=== PATIENT | female | born 1930 | race Caucasian/White ===

== ENCOUNTER 2017-12-17 14:01 | Inpatient (IN) ==
--- NOTE | 2017-12-17 14:41 | ED ---
HPI General Chief complaint: Head Injury Stated complaint: Fall/Head Laceration/Knee Pain Time Seen by Provider: 12/17/17 14:17 Source: patient Mode of arrival: ambulatory Limitations: no limitations History of Present Illness HPI Narrative: 87-year-old female arrives with daughter. The patient experienced a mechanical fall about an hour and half prior to ER arrival. Her foot was evidently stepping care home onto a scale causing her to feel unbalanced and leading to the fall. Patient struck the left forehead onto the tile. No loss of consciousness. Mild discomfort in the area reported. Bleeding resolved spontaneously. Patient takes a baby aspirin. No other injury to report. The patient's daughter notes the vital signs are abnormal with a blood pressure of about 80/50 and a heart rate in the 50s. Typically the patient has elevated blood pressure heart rate. MD Complaint: head injury Onset (ago): hour(s) (1.5) Mechanism of Injury: fall Place: home Loss of Consciousness: no Location of injury: frontal Severity: mild Radiation: none Other Injuries: none Context: on aspirin Associated symptoms: denies other symptoms Related Data Home Medications Medication Instructions Recorded Confirmed aspirin [Aspir-81] 81 mg PO DAILY 12/17/17 12/17/17 levothyroxine 25 mcg PO DAILY 12/17/17 12/17/17 losartan 25 mg PO DAILY 12/17/17 12/17/17 metoprolol tartrate 50 mg PO BID 12/17/17 12/17/17 simvastatin 40 mg PO QPM 12/17/17 12/17/17 Allergies Allergy/AdvReac Type Severity Reaction Status Date / Time No Known Allergies Allergy Verified 12/17/17 14:13 Review of Systems Except as stated in HPI: all other systems reviewed are negative Constitutional Reports as per HPI and Denies fever(s) Eyes Denies change in vision and Denies loss of vision [facility] Medical History Medical History High cholesterol (Acute) Hypertension (Acute) Hypothyroidism (Acute) Surgical History Surgical History Hx of tonsillectomy (Acute) Social History Social History Second Hand Smoke Exposure: No Smoking Status: Never smoker How Often Do You Have a Drink Containing Alcohol: Never Recent Travel in [facility] within the Last 8 Weeks: No Recent Out of Country Travel within the Last 8 Weeks: No Immunization History Tetanus Immunization: >5 Years Hx Influenza Vaccine This Season: No Exam Narrative Exam Narrative: GENERAL: 87 yo F, pleasant well-nourished well-developed SKIN: Focused skin assessment warm/dry. HEAD: The left forehead overlying the lateral aspect of the supraorbital ridge there is a 4 mm x 2 mm abrasion with dried blood. Adjacent ecchymosis is noted on the left side. EYES: Pupils equal and round. No scleral icterus. No injection or drainage. ENT: No nasal bleeding or discharge. Mucous membranes pink and moist. NECK: Trachea midline. No JVD. CARDIOVASCULAR: Regular rate and rhythm. No murmur appreciated. RESPIRATORY: No accessory muscle use. Clear to auscultation. Breath sounds equal bilaterally. GASTROINTESTINAL: Abdomen soft, non-tender, nondistended. Hepatic and splenic margins not palpable. MUSCULOSKELETAL: No obvious deformities. No clubbing. No cyanosis. No edema. NEUROLOGICAL: Awake and alert. No obvious cranial nerve deficits. Motor grossly within normal limits. Normal speech. PSYCHIATRIC: Appropriate mood and affect; insight and judgment normal. Course Reevaluation(s) Reevaluation #1: Pt resting comfortably. Results discussed and concern for renal failure endorsed. Call placed to [facility]. BP up to 90s/50s with HR in the 60s. Time: 15:25 Initial Documented Vital Signs Temperature 97.4 F L 12/17/17 14:06 Pulse Rate 54 L 12/17/17 14:06 Respiratory Rate 16 12/17/17 14:06 Blood Pressure 89/49 L 12/17/17 14:06 Pulse Oximetry 100 12/17/17 14:06 Last Documented Vital Signs Temperature 97.4 F L 12/17/17 14:06 Pulse Rate 57 L 12/17/17 17:12 Respiratory Rate 18 12/17/17 17:12 Blood Pressure 90/47 L 12/17/17 17:12 Pulse Oximetry 97 12/17/17 17:12 Medical Decision Making [facility] Narrative Medical decision making narrative: Head CT shows no acute intracranial hemorrhage or bony injury involving the skull. There is a very mild abrasion overlying the left supraorbital ridge. The patient is stable for discharge home. The blood pressure and heart rate were noted to be abnormal with some heart rate of about 50-60 and a blood pressure of 80/50. Evidently patient did not take her morning medications. Blood work today reveals a BUN creatinine 40/2.7. The potassium is 4.7. EKG shows no hyperkalemic change. The patient's daughter has records available revealing creatinine of 0.9 and a BUN of 22 resulting from a blood draw 4 months ago. Blood pressure has increased to 90/50 with a heart rate in the 60s. Paper medical records from the primary care office show 1 blood pressure measurement of 98/68. The patient will be admitted due to significant decline in renal function of unknown acuity and cause. Urinalysis is pending. case d/w Dr Zarate for [facility], management appreciated. Lab Data Result diagrams: 12/17/17 14:00 12/17/17 14:00 Lab Results 12/17/17 12/17/17 12/17/17 Range/Units 14:00 14:00 14:27 CBC w Diff Auto diff final WBC 7.3 (4.0-11.0) th/mm3 RBC 4.26 (4.00-5.30) mil/mm3 Hgb 13.3 (11.6-15.3) gm/dL Hct 40.4 (35.0-46.0) % MCV 95.0 (80.0-100.0) fL MCH 31.3 (27.0-34.0) pg MCHC 32.9 (32.0-36.0) % RDW 14.8 (11.6-17.2) % Plt Count 141 L (150-450) th/mm3 MPV 8.1 (7.0-11.0) fL Neut % (Auto) 56.1 (16.0-70.0) % Lymph % (Auto) 27.5 (9.0-44.0) % Wirt % (Auto) 9.5 H (0.0-8.0) % Eos % (Auto) 3.0 (0.0-4.0) % Baso % (Auto) 3.9 H (0.0-2.0) % Neut # (Auto) 4.1 (1.8-7.7) th/mm3 Lymph # (Auto) 2.0 (1.0-4.8) th/mm3 Wirt # (Auto) 0.7 (0.0-0.9) th/mm3 Eos # (Auto) 0.2 (0.0-0.4) th/mm3 Baso # (Auto) 0.3 H (0.0-0.2) th/mm3 WBC Differential . Differential Comment . Sodium 137 (136-145) meq/L Potassium 4.7 (3.5-5.1) meq/L Chloride 104 (98-107) meq/L Carbon Dioxide 24.4 (21.0-32.0) meq/L Anion Gap 9 (5-15) meq/L BUN 40 H (7-18) mg/dL Creatinine 2.70 H (0.50-1.00) mg/dL Estimated GFR 17 L (>89) mL/min POC Glucose 117 H (68-110) mg/dl Random Glucose 125 H (74-106) mg/dL Calcium 10.6 H (8.5-10.1) mg/dL Total Bilirubin 1.0 (0.2-1.0) mg/dL AST 111 H (15-37) U/L ALT 62 H (10-53) U/L Alkaline Phosphatase 64 (45-117) U/L Troponin I 0.07 H (0.02-0.05) ng/mL Total Protein 5.8 L (6.4-8.2) g/dL Albumin 3.0 L (3.4-5.0) g/dL Ur Collection Type Urine Color (Yellw/Straw) Urine Clarity (Clear) Urine pH (5.0-8.5) Ur Specific [place] (1.002-1.035) Urine Protein (Neg-Trace) mg/dL Urine Glucose (UA) (Negative) mg/dL Urine Ketones (Negative) mg/dL Urine Occult Blood (Negative) Urine Nitrate (Negative) Urine Bilirubin (Negative) Urine Urobilinogen (Less than 2) mg/dL Ur Leukocyte Esterase (Negative) Urine WBC (0-5) /hpf Urine WBC Clumps (None) Ur Squamous Epith Cells (0-5) /hpf Ur Transition Epith Cell (None) /hpf Urine Bacteria (None) /hpf Hyaline Casts (0-3) /lpf Micro UA Comment Urine Culture Comments 12/17/17 Range/Units 15:50 CBC w Diff WBC (4.0-11.0) th/mm3 RBC (4.00-5.30) mil/mm3 Hgb (11.6-15.3) gm/dL Hct (35.0-46.0) % MCV (80.0-100.0) fL MCH (27.0-34.0) pg MCHC (32.0-36.0) % RDW (11.6-17.2) % Plt Count (150-450) th/mm3 MPV (7.0-11.0) fL Neut % (Auto) (16.0-70.0) % Lymph % (Auto) (9.0-44.0) % Wirt % (Auto) (0.0-8.0) % Eos % (Auto) (0.0-4.0) % Baso % (Auto) (0.0-2.0) % Neut # (Auto) (1.8-7.7) th/mm3 Lymph # (Auto) (1.0-4.8) th/mm3 Wirt # (Auto) (0.0-0.9) th/mm3 Eos # (Auto) (0.0-0.4) th/mm3 Baso # (Auto) (0.0-0.2) th/mm3 WBC Differential Differential Comment Sodium (136-145) meq/L Potassium (3.5-5.1) meq/L Chloride (98-107) meq/L Carbon Dioxide (21.0-32.0) meq/L Anion Gap (5-15) meq/L BUN (7-18) mg/dL Creatinine (0.50-1.00) mg/dL Estimated GFR (>89) mL/min POC Glucose (68-110) mg/dl Random Glucose (74-106) mg/dL Calcium (8.5-10.1) mg/dL Total Bilirubin (0.2-1.0) mg/dL AST (15-37) U/L ALT (10-53) U/L Alkaline Phosphatase (45-117) U/L Troponin I (0.02-0.05) ng/mL Total Protein (6.4-8.2) g/dL Albumin (3.4-5.0) g/dL Ur Collection Type Cath Urine Color Yellow (Yellw/Straw) Urine Clarity Slightly cloudy (Clear) Urine pH 6.0 (5.0-8.5) Ur Specific [place] 1.020 (1.002-1.035) Urine Protein 30 H (Neg-Trace) mg/dL Urine Glucose (UA) Negative (Negative) mg/dL Urine Ketones Trace H (Negative) mg/dL Urine Occult Blood Negative (Negative) Urine Nitrate Negative (Negative) Urine Bilirubin Negative (Negative) Urine Urobilinogen 0.2 (Less than 2) mg/dL Ur Leukocyte Esterase Small H (Negative) Urine WBC 6-8 H (0-5) /hpf Urine WBC Clumps Few H (None) Ur Squamous Epith Cells 0-5 (0-5) /hpf Ur Transition Epith Cell 0-3 (None) /hpf Urine Bacteria Rare H (None) /hpf Hyaline Casts 4-10 H (0-3) /lpf Micro UA Comment Culture indicated Urine Culture Comments Culture indicated Imaging Data Radiologist's impression: Head CT 12/17/17 14:28 CONCLUSION: 1. No acute intracranial abnormalities. . Discharge Plan Discharge Disposition Patient Disposition: 30 Still Patient Physicians Team ED Provider: Spenser Rodriguez Primary Care Provider: Jose Mccoy Attending Provider: Nils Zarate Discharge Interventions Interventions: Vital Signs Last Done: 12/17/17 16:08 Status ED Status: Admitted Patient
[2017-12-17] MEDS ORDERED: Sod Chloride 0.9% Inj 1,000 ML IV.SIG ONE ×2 (14:42→23:00)
[2017-12-17 15:01] LABS: Baso # (Auto) 0.3 th/mm3 (0.0-0.2); Baso % (Auto) 3.9 % (0.0-2.0); Eos # (Auto) 0.2 th/mm3 (0.0-0.4); Hematocrit 40.4 % (35.0-46.0); Hemoglobin 13.3 gm/dL (11.6-15.3); Lymph % (Auto) 27.5 % (9.0-44.0); Mean Corpuscular HGB Conc 32.9 % (32.0-36.0); Mean Corpuscular Hemoglobin 31.3 pg (27.0-34.0); Mean Platelet Volume 8.1 fL (7.0-11.0); Mono # (Auto) 0.7 th/mm3 (0.0-0.9); Mono % (Auto) 9.5 % (0.0-8.0); Neut # (Auto) 4.1 th/mm3 (1.8-7.7); Neut % (Auto) 56.1 % (16.0-70.0); Platelet Count 141 th/mm3 (150-450); Red Blood Count 4.26 mil/mm3 (4.00-5.30); Red Cell Distribution Width 14.8 % (11.6-17.2); White Blood Count 7.3 th/mm3 (4.0-11.0)
[2017-12-17 15:13] LABS: Chloride 104 meq/L (98-107); Sodium 137 meq/L (136-145)
[2017-12-17 15:16] LABS: Anion Gap 9 meq/L (5-15); Calcium 10.6 mg/dL (8.5-10.1); Carbon Dioxide 24.4 meq/L (21.0-32.0); Glucose,Random 125 mg/dL (74-106)
[2017-12-17 15:17] LABS: Blood Urea Nitrogen 40 mg/dL (7-18)
[2017-12-17 15:18] LABS: Potassium 4.7 meq/L (3.5-5.1)
[2017-12-17 15:20] LABS: Alanine Aminotransferase 62 U/L (10-53); Aspartate Aminotransferase 111 U/L (15-37); Glomerular Filtration Rate 17 mL/min (>89)
[2017-12-17 15:21] LABS: Total Protein 5.8 g/dL (6.4-8.2)
[2017-12-17 15:22] LABS: Alkaline Phosphatase 64 U/L (45-117)
[2017-12-17 15:24] LABS: Troponin I 0.07 ng/mL (0.02-0.05)
--- NOTE | 2017-12-17 15:33 | CT ---
EXAM DATE: 12/17/2017 3:15 PM EDT AGE/SEX: 87 years / Female INDICATIONS: Fell and hit head. CLINICAL DATA: This is the patient's initial encounter. Patient reports that signs and symptoms have been present for 1 day and indicates a pain score of 6/10. MEDICAL/SURGICAL HISTORY: Hypertension. Hypothyroidism. Tonsillectomy. RADIATION DOSE: 55.56 CTDI (mGy) COMPARISON: No prior exams available for comparison. TECHNIQUE: CT of the head without contrast. Using automated exposure control and adjustment of the mA and/or kV according to patient size, radiation dose was kept as low as reasonably achievable to ob tain optimal diagnostic quality images. DICOM format image data is available electronically for revi ew and comparison. FINDINGS: Cerebrum: The ventricles are normal for age. No evidence of midline shift, mass lesion, hemorrhage or acute infarction. No extraaxial fluid collections are seen. Posterior Fossa: The cerebellum and brainstem are intact. The 4th ventricle is midline. The cerebe llopontine angle is unremarkable. Extracranial: The visualized portion of the orbits is intact. Skull: The calvaria is intact. No evidence of skull fracture. CONCLUSION: 1. No acute intracranial abnormalities. . Electronically signed by: Donnell San MD 12/17/2017 3:32 PM EDT
[2017-12-17 16:01] LABS: Bilirubin,Urine Negative (Negative); Clarity,Urine Slightly Cloudy (Clear); Color,Urine Yellow (Yellw/Straw); Glucose,Urine (UA) Negative (Negative); Leukocyte Esterase,Urine Small (Negative); Nitrite,Urine Negative (Negative); Urobilinogen,Urine 0.2 mg/dL (Less than 2)
[2017-12-17 16:27] LABS: Squamous Epithelial Cell,Urine 0-5 /hpf (0-5); Transitional Epi Cells,Urine 0-3 /hpf
[2017-12-17 16:28] LABS: Bacteria,Urine Rare /hpf
[2017-12-17] MEDS ORDERED: Bisacodyl 10 MG Supp RECTAL PRN (17:20)
--- NOTE | 2017-12-17 17:20 | P.HPIM ---
History of Present Illness Service: [facility] Hospitalist Primary Care Physician: Jose Mccoy MD Chief Complaint: Fall History of Present Illness: 87 Y/O female with a medical history significant for hypotension presented to the emergency room with her daughter after a mechanical fall at home. Patient reports that she normally goes to bed around 2 in the morning and sleep in most days. She woke up today to get ready and tripped on the scale on the bathroom. The left side of her face striking the door frame. She denied any lightheadedness, no chest pain. She is short of breath at baseline with activities. She does not normally eat breakfast. Her blood pressure in the emergency room was noted to the in the 80's/50's and heart rate in the 50's. On my evaluation she states she is feeling well. She has been given a liter of NS and BP improved but still low in the 90's/50's. Daughter reports that her blood pressure is usually in the normal range or elevated. Hospitalist service contacted for admission. - Diagnosis (1) Fall (2) Hypotension (3) Acute on chronic renal failure (4) History of hypertension Inpatient Certification: I certify that the inpatient services were ordered in accordance with Medicare regulations governing the order. This includes certification that hospital inpatient services are reasonable and necessary and in the case of services not specified as inpatient-only under 42 CFR 419.22(n), that they are appropriately provided as inpatient services in accordance to with the 2-midnight benchmark under 43 CFR 412.3(e) Review of Systems All other systems reviewed negative except as stated in HPI [facility] - History History Provided By: Patient, Family Member - Medical History Medical History: Medical History (Last Updated 12/17/17 @ 14:18 by Laura Karimi RN) High cholesterol Hypertension Hypothyroidism - Surgical History Surgical History: Surgical History (Last Updated 12/17/17 @ 14:18 by Laura Karimi RN) Hx of tonsillectomy - Tobacco History Second Hand Smoke Exposure: No Tobacco Use In Past 30 Days: No Smoking Status: Never smoker - Alcohol History How Often Do You Have a Drink Containing Alcohol: Never - Travel History Recent Travel in the [place] Within the Last 8 Weeks: No Recent Travel Out of the Country Within the Last 8 Weeks: No - Immunization History Tetanus Immunization: >5 Years Hx Influenza Vaccine This Season: No Medications and Allergies Active Medications: Active Medications Sodium Chloride (Ns Flush) 2 ml IV.FLUSH PRN PRN PRN Reason: FLUSH AFTER USING IV ACCESS Allergies Allergy/AdvReac Type Severity Reaction Status Date / Time No Known Allergies Allergy Verified 12/17/17 14:13 Home Medications Medication Instructions Recorded Confirmed Type aspirin [Aspir-81] 81 mg PO DAILY 12/17/17 12/17/17 History levothyroxine 25 mcg PO DAILY 12/17/17 12/17/17 History losartan 25 mg PO DAILY 12/17/17 12/17/17 History metoprolol tartrate 50 mg PO BID 12/17/17 12/17/17 History simvastatin 40 mg PO QPM 12/17/17 12/17/17 History Exam Vital signs: Vital Signs 12/17/17 14:06 12/17/17 14:17 12/17/17 14:21 Temperature 97.4 F L Pulse Rate 54 L 55 L 58 L Respiratory Rate 16 18 Blood Pressure 89/49 L 82/50 L Pulse Oximetry 100 98 12/17/17 14:37 12/17/17 14:42 12/17/17 15:38 Temperature Pulse Rate 57 L 56 L Respiratory Rate 16 16 Blood Pressure 83/42 L 90/52 L Pulse Oximetry 97 98 96 12/17/17 16:08 12/17/17 17:12 Temperature Pulse Rate 57 L Respiratory Rate 18 Blood Pressure 107/51 L 90/47 L Pulse Oximetry 97 Intake & Output 12/16/17 12/17/17 12/17/17 18:59 06:59 18:59 Intake Total 1000 / 1000 Balance 1000 / 1000 Weight 64 kg Intake: IV 1000 / 1000 NS Inj 1,000 ML @ Wide Open IV. 1000 / 1000 SIG BOLUS ONE Rx#:[id number] Narrative: GENERAL: Elderly female in no acute distress. Ecchymoses over the left eye. Small abrasion on the left eyelid. SKIN: Warm and dry. HEAD: Atraumatic. Normocephalic. EYES: As noted above under general. Pupils equal and round. No scleral icterus. No injection or drainage. EOM intact. ENT: No nasal bleeding or discharge. Mucous membranes pink and moist. NECK: Trachea midline. No JVD. CARDIOVASCULAR: Regular rate and rhythm. 2/6 MI best heard over the left sternal border RESPIRATORY: No accessory muscle use. Clear to auscultation. Breath sounds equal bilaterally. GASTROINTESTINAL: Abdomen soft, non-tender, nondistended. Hepatic and splenic margins not palpable. MUSCULOSKELETAL: Extremities without clubbing, cyanosis, or edema. No obvious deformities. NEUROLOGICAL: Awake and alert. No obvious cranial nerve deficits. Motor grossly within normal limits. Five out of 5 muscle strength in the arms and legs. Normal speech. PSYCHIATRIC: Appropriate mood and affect; insight and judgment normal. Results - Labs CBC & Chem 7: 12/17/17 14:00 12/17/17 14:00 Labs: Short CBC 12/17/17 Range/Units 14:00 WBC 7.3 (4.0-11.0) th/mm3 Hgb 13.3 (11.6-15.3) gm/dL Hct 40.4 (35.0-46.0) % Plt Count 141 L (150-450) th/mm3 BMP 12/17/17 14:00 Sodium 137 Potassium 4.7 Chloride 104 Carbon Dioxide 24.4 BUN 40 H Creatinine 2.70 H Calcium 10.6 H Cardiac Enzymes 12/17/17 Range/Units 14:00 Troponin I 0.07 H (0.02-0.05) ng/mL Liver Function 12/17/17 Range/Units 14:00 Total Bilirubin 1.0 (0.2-1.0) mg/dL AST 111 H (15-37) U/L ALT 62 H (10-53) U/L Alkaline Phosphatase 64 (45-117) U/L Albumin 3.0 L (3.4-5.0) g/dL Urine 12/17/17 Range/Units 15:50 Urine Color Yellow (Yellw/Straw) Urine Clarity Slightly cloudy (Clear) Urine pH 6.0 (5.0-8.5) Ur Specific [place] 1.020 (1.002-1.035) Urine Protein 30 H (Neg-Trace) mg/dL Urine Glucose (UA) Negative (Negative) mg/dL - Imaging Impressions Head CT 12/17/17 14:28 CONCLUSION: 1. No acute intracranial abnormalities. . Caprini VTE Risk Assessment Caprini VTE Risk Assessment: Moderate/High Risk (score >= 2) VTE Pharmacological Exception Reason: High risk for bleeding Caprini Risk Assessment Model: Point Value = 1 Point Value = 2 Point Value = 3 Point Value = 5 Age 41-60 Minor surgery BMI > 25 kg/m2 Swollen legs Varicose veins or History of unexplained or recurrent spontaneous Oral contraceptives or hormone replacement Sepsis (< 1 month) Serious lung disease, including pneumonia (< 1 month) Abnormal pulmonary function Acute myocardial infarction Congestive heart failure (< 1 month) History of inflammatory bowel disease Medical patient at bed rest Age 61-74 Arthroscopic surgery Major open surgery (> 45 min) Laparoscopic surgery (> 45 min) Malignancy Confined to bed (> 72 hours) Immobilizing plaster cast Central venous access Age >= 75 History of VTE Family history of VTE Factor V Leiden Prothrombin [id number] Lupus anticoagulant Anticardiolipin antibodies Elevated serum homocysteine Heparin-induced thrombocytopenia Other congenital or acquired thrombophilia Stroke (< 1 month) Elective arthroplasty Hip, pelvis, or leg fracture Acute spinal cord injury (< 1 month) Prophylaxis Regimen: Total Risk Factor Score Risk Level Prophylaxis Regimen 0-1 Low Early ambulation 2 Moderate Order ONE of the following: *Sequential Compression Device (SCD) *Heparin 5000 units SQ BID 3-4 Higher Order ONE of the following medications: *Heparin 5000 units SQ TID *Enoxaparin/Lovenox 40 mg SQ daily (WT < 150 kg, CrCl > 30 mL/min) *Enoxaparin/Lovenox 30 mg SQ daily (WT < 150 kg, CrCl > 10-29 mL/min) *Enoxaparin/Lovenox 30 mg SQ BID (WT < 150 kg, CrCl > 30 mL/min) AND/OR *Sequential Compression Device (SCD) 5 or more Highest Order ONE of the following medications: *Heparin 5000 units SQ TID (Preferred with Epidurals) *Enoxaparin/Lovenox 40 mg SQ daily (WT < 150 kg, CrCl > 30 mL/min) *Enoxaparin/Lovenox 30 mg SQ daily (WT < 150 kg, CrCl > 10-29 mL/min) *Enoxaparin/Lovenox 30 mg SQ BID (WT < 150 kg, CrCl > 30 mL/min) AND *Sequential Compression Device (SCD) Assessment and Plan - Assessment (1) Fall Code(s): W19.XXXA - Unspecified fall, initial encounter Status: Acute (2) Hypotension Code(s): I95.9 - Hypotension, unspecified Status: Acute (3) Acute on chronic renal failure Code(s): N17.9 - Acute kidney failure, unspecified; N18.9 - Chronic kidney disease, unspecified Status: Acute (4) History of hypertension Code(s): Z86.79 - Personal history of other diseases of the circulatory system Status: Acute - Plan 87 Y/O female who sustained a trip and fall. Patient found to be hypotensive and bradycardic in the ED. She denies any cardiovascular symptoms. Her sleeping and food intake pattern is unusual. I suspect medication side effect. Mechanical fall: Patient reports she tripped on a scale and fell. Only apparent injury is ecchymoses and small laceration to the right eyelid - Will have PT evaluated. - Pain medication as needed. Hypotension: Suspect too much medication and lack of inadequate PO intake contributing - Hold Metoprolol and Losartan - IVF with NS @100 CC/Hr Acute on chronic renal failure: - Daughter reports that the last cr was less than 1. Suspect prerenal azotemia - Continue IVF as above Sinus bradycardia: - Asymptomatic. Could be secondary to metoprolol. Hold metoprolol. Monitor on telemetry. Check thyroid functions Hypothyroidism: Continue Synthroid. Check TSH and free T4 Mild elevation of troponin: Indeterminate. Likely secondary to renal failure - Follow up EKG and troponin levels Elevated LFT's: - Likely secondary to dehydration. Follow up levels in AM.
[2017-12-17] MEDS: Sod Chloride 0.9% Inj 1,000 ML IV.CONT SCH (17:57)
[2017-12-17 18:24] LABS: Thyroid Stimulating Hormone 3.67 uIU/mL (0.358-3.740); Troponin I 0.07 ng/mL (0.02-0.05)
[2017-12-17] MEDS ORDERED: Sod Chloride 0.9% Inj 1,000 ML IV.SIG SCH (18:45)
[2017-12-17 23:11] LABS: Free T4 (Free Thyroxine) 1.56 ng/dL (0.76-1.46)
[2017-12-17] MEDS ORDERED: Dextrose 5%/NaCl 0.45% Inj 1,000 ML IV.SIG ONE (23:55)
[2017-12-18 02:44] LABS: Baso # (Auto) 0.1 th/mm3 (0.0-0.2); Baso % (Auto) 1.2 % (0.0-2.0); Eos # (Auto) 0.2 th/mm3 (0.0-0.4); Eos % (Auto) 2.6 % (0.0-4.0); Hematocrit 32.2 % (35.0-46.0); Hemoglobin 10.6 gm/dL (11.6-15.3); Lymph # (Auto) 1.8 th/mm3 (1.0-4.8); Lymph % (Auto) 24.9 % (9.0-44.0); Mean Corpuscular HGB Conc 32.9 % (32.0-36.0); Mean Corpuscular Hemoglobin 31.4 pg (27.0-34.0); Mean Corpuscular Volume 95.5 fL (80.0-100.0); Mean Platelet Volume 7.6 fL (7.0-11.0); Mono # (Auto) 0.5 th/mm3 (0.0-0.9); Mono % (Auto) 6.3 % (0.0-8.0); Neut # (Auto) 4.7 th/mm3 (1.8-7.7); Platelet Count 108 th/mm3 (150-450); Red Blood Count 3.37 mil/mm3 (4.00-5.30); Red Cell Distribution Width 14.6 % (11.6-17.2); White Blood Count 7.3 th/mm3 (4.0-11.0)
[2017-12-18] MEDS ORDERED: Albumin Human 25% Inj 100 ML IV.SIG ONE (02:50)
[2017-12-18] MEDS: Sod Chloride 0.9% Inj 1,000 ML IV.CONT SCH (02:52)
[2017-12-18 03:06] LABS: Albumin 2.3 g/dL (3.4-5.0); Calcium 8.4 mg/dL (8.5-10.1); Carbon Dioxide 22.2 meq/L (21.0-32.0); Total Protein 4.5 g/dL (6.4-8.2)
[2017-12-18] MEDS ORDERED: Sod Chloride 0.9% Inj 1,000 ML IV.SIG ONE (04:00)
[2017-12-18] MEDS ORDERED: Dextrose 50% in Water 50 ML Vial IV.PUSH PRN (07:30)
--- NOTE | 2017-12-18 07:30 | P.CONCC ---
History of Present Illness Service: critical care Consult date: 12/18/17 Requesting Physician: Nils Zarate Reason for Consult: HYPOTENSION Primary Care Provider: Jose Mccoy MD Chief Complaint: Fall History of Present Illness: 87 Y/O female with a medical history significant for hypotension presented to the emergency room with her daughter after a mechanical fall at home. Patient reports that she normally goes to bed around 2 in the morning and sleep in most days. She woke up on12/17 to get ready and felt dizzy while walking to the bathroom. She tripped on the scale on the bathroom with the left side of her face striking the door frame. She denied any lightheadedness, no chest pain. She is short of breath at baseline with activities. She does not normally eat breakfast. Her blood pressure in the emergency room was noted to the in the 80's /50's and heart rate in the 50's. She was given a liter of NS and BP improved but still low in the 90's/50's. Daughter reports that her blood pressure is usually in the normal range or elevated. Patient was admitted by hospitalist service to the ICU. She received a total of 4 L normal saline overnight. Hypotension persisted hence critical care consult was requested by hospitalist service and patient was started on Levophed for pressor support. She had been started on empiric Rocephin as her UA suggested a UTI. When I evaluated the patient she was resting in bed comfortably not in any acute distress. She denied any chest pain or shortness of breath. Denied any diarrhea melena or rectal bleeding. Denies any abdominal pain. She denied any fever or chills. She is at home with her granddaughter. She tells me that she does have diabetes this is not listed in her past medical history. She was on metoprolol and losartan at home which were discontinued on admission in view of bradycardia and hypotension. She denies any heart or lung problems before. Denies any fever or chills. Review of Systems All other systems reviewed negative except as stated in HPI PMFSH - History History Provided By: Patient, Family Member - Medical History Medical History: Medical History (Last Updated 12/17/17 @ 14:18 by Laura Karimi RN) High cholesterol Hypertension Hypothyroidism - Surgical History Surgical History: Surgical History (Last Updated 08/05/18 @ 14:18 by Laura Karimi RN) Hx of tonsillectomy - Tobacco History Second Hand Smoke Exposure: No Tobacco Use In Past 30 Days: No Smoking Status: Never smoker - Alcohol History How Often Do You Have a Drink Containing Alcohol: Never - Substance Use History Substance History: No History of Abuse - Travel History Recent Travel in the [place] Within the Last 8 Weeks: No Recent Travel Out of the Country Within the Last 8 Weeks: No - Immunization History Tetanus Immunization: >5 Years Hx Influenza Vaccine This Season: No Medications and Allergies Active Medications: Active Medications Al Hydroxide/Mg Hydroxide (Milk Of Magnesia Liq) 30 ml PO Q12H PRN PRN Reason: Mild Constipation Aspirin (Ecotrin) 81 mg PO DAILY [facility] Bisacodyl (Dulcolax Supp) 10 mg RECTAL DAILY PRN PRN Reason: SEVERE CONSITIPATION Sodium Chloride (Ns Inj) 1,000 mls @ 100 mls/hr IV.CONT .Q10H [facility] Last Admin: 12/18/17 02:52 Dose: 100 mls/hr Ceftriaxone Sodium 1,000 mg/ (Sodium Chloride) 100 mls @ 200 mls/hr IV.SIG Q24H [facility] Norepinephrine Bitartrate (Levophed-Dextrose 4 Mg/250 Ml Drip) 4 mg in 250 mls @ 7.5 mls/hr IV.SIG TITRATE PRN; Protocol PRN Reason: Per Protocol Last Titration: 12/18/17 06:22 Dose: 5 mcg/min, 18.75 mls/hr Lactulose (Lactulose Liq) 30 ml PO DAILY PRN PRN Reason: SEVERE CONSITIPATION Levothyroxine Sodium (Synthroid) 25 mcg PO DAILY [facility] Midodrine (Proamatine) 5 mg PO Q8HR PRN PRN Reason: SEE DOSE INSTRUCTIONS Ondansetron HCl (Zofran Inj) 4 mg IV.PUSH Q6H PRN PRN Reason: NAUSEA OR VOMITING Pravastatin Sodium (Pravachol) 80 mg PO QPM [facility] Last Admin: 12/17/17 19:57 Dose: 80 mg Sennosides (Senokot) 17.2 mg PO Q12H PRN PRN Reason: Moderate Constipation Sodium Chloride (Ns Flush) 2 ml IV.FLUSH PRN PRN PRN Reason: FLUSH AFTER USING IV ACCESS Allergies Allergy/AdvReac Type Severity Reaction Status Date / Time No Known Allergies Allergy Verified 12/17/17 14:13 Home Medications Medication Instructions Recorded Confirmed Type aspirin [Aspir-81] 81 mg PO DAILY 12/17/17 12/17/17 History levothyroxine 25 mcg PO DAILY 12/17/17 12/17/17 History losartan 25 mg PO DAILY 12/17/17 12/17/17 History metoprolol tartrate 50 mg PO BID 12/17/17 12/17/17 History simvastatin 40 mg PO QPM 12/17/17 12/17/17 History Physical Exam Vital signs: Vital Signs 12/17/17 14:06 12/17/17 14:17 12/17/17 14:21 Temperature 97.4 F L Pulse Rate 54 L 55 L 58 L Respiratory Rate 16 18 Blood Pressure 89/49 L 82/50 L Pulse Oximetry 100 98 12/17/17 14:37 12/17/17 14:42 12/17/17 15:38 Temperature Pulse Rate 57 L 56 L Respiratory Rate 16 16 Blood Pressure 83/42 L 90/52 L Pulse Oximetry 97 98 96 12/17/17 16:08 12/17/17 17:12 12/17/17 18:00 Temperature 97.5 F L Pulse Rate 57 L 52 L Respiratory Rate 18 16 Blood Pressure 107/51 L 90/47 L 71/43 L Pulse Oximetry 97 12/17/17 20:00 12/17/17 20:14 12/17/17 21:51 Temperature 97.6 F Pulse Rate 62 68 66 Respiratory Rate 20 18 20 Blood Pressure 81/50 L 99/83 L 73/40 L Pulse Oximetry 96 98 97 12/17/17 22:00 12/17/17 22:09 12/17/17 22:10 Temperature Pulse Rate 64 65 62 Respiratory Rate 32 H 18 23 Blood Pressure 78/40 L 85/41 L 85/41 L Pulse Oximetry 92 L 97 97 12/17/17 22:15 12/17/17 22:30 12/17/17 22:45 Temperature Pulse Rate 72 74 80 Respiratory Rate 29 H 30 H 28 H Blood Pressure 87/66 L 72/43 L 78/44 L Pulse Oximetry 98 97 96 12/17/17 23:00 12/17/17 23:30 12/17/17 23:49 Temperature Pulse Rate 70 75 66 Respiratory Rate 33 H 20 20 Blood Pressure 81/41 L 85/42 L 80/42 L Pulse Oximetry 96 96 96 12/18/17 00:00 12/18/17 00:15 12/18/17 00:30 Temperature 98.3 F 98.3 F Pulse Rate 71 78 72 Respiratory Rate 21 25 H 29 H Blood Pressure 74/39 L 75/39 L 78/38 L Pulse Oximetry 97 97 97 12/18/17 00:51 12/18/17 01:15 12/18/17 01:16 Temperature Pulse Rate 72 76 75 Respiratory Rate 28 H 22 18 Blood Pressure 90/45 L 113/51 L 113/51 L Pulse Oximetry 97 93 L 95 12/18/17 01:32 12/18/17 02:00 12/18/17 02:21 Temperature Pulse Rate 78 68 64 Respiratory Rate 23 20 23 Blood Pressure 91/47 L 71/47 L 72/37 L Pulse Oximetry 96 95 94 L 12/18/17 02:35 12/18/17 03:30 12/18/17 04:00 Temperature 98.2 F Pulse Rate 70 70 65 Respiratory Rate 33 H 28 H 26 H Blood Pressure 73/42 L 80/38 L 74/39 L Pulse Oximetry 96 94 L 95 12/18/17 04:15 12/18/17 04:27 12/18/17 05:00 Temperature 98.0 F Pulse Rate 62 62 62 Respiratory Rate 23 23 24 Blood Pressure 72/46 L 77/46 L 76/42 L Pulse Oximetry 94 L 94 L 93 L 12/18/17 05:13 12/18/17 05:30 12/18/17 05:45 Temperature Pulse Rate 62 62 62 Respiratory Rate 23 23 22 Blood Pressure 75/44 L 76/35 L 75/39 L Pulse Oximetry 93 L 92 L 95 12/18/17 05:49 12/18/17 06:00 12/18/17 06:21 Temperature Pulse Rate 64 62 66 Respiratory Rate 27 H 25 H 20 Blood Pressure 96/54 L 77/40 L 90/47 L Pulse Oximetry 96 93 L 96 12/18/17 06:37 Temperature Pulse Rate 62 Respiratory Rate 20 Blood Pressure 97/47 L Pulse Oximetry 96 Intake & Output 12/17/17 12/18/17 12/18/17 18:59 06:59 18:59 Intake Total 1000 / 1000 4996 / 4996 Output Total 50 / 50 750 / 750 Balance 950 / 950 4246 / 4246 Weight 64 kg 66.2 kg Intake: IV 1000 / 1000 4996 / 4996 NS Inj 1,000 ML @ 100 mls/hr IV 1000 / 1000 .CONT .Q10H [facility] Rx#:[id number] NS Inj 1,000 ML @ As Directed 1000 / 1000 3996 / 3996 IV.SIG BOLUS ONE Rx#:[id number] Rocephin Inj 1,000 MG In NS Inj 0 / 0 100 ML @ 200 mls/hr IV.SIG ONCE ONE Rx#:[id number] Output: Urine 50 / 50 50 / 50 Urine Amount (Catheter) 700 / 700 Straight 700 / 700 Other: Date of Last Bowel Movement 12/17/17 Weight On Admission 64 kg Narrative: HEENT/Neuro: Ecchymosis around left eye noted. No pallor or icterus, tongue moist, GUDELIA, Awake alert oriented 3, nonfocal grossly, moving all 4 extremities Neck: No JVD Chest/pulmonary: CTA bilaterally Cardiovascular: S1-S2 regular, ejection systolic murmur best heard over left second intercostal space GI/abdomen: Soft, nontender, bowel sounds present Extremities: Warm bilaterally, no edema - Urinary Catheter Management Straight Cath placed during this visit: yes, but has since been removed by the nurse Reason for continuing: Acute urinary retention Insertion date: 12/18/17 Insertion time: 02:14 Removal date: 12/17/17 Removal time: 15:53 Assessment and Plan - Assessment and Plan Plan: 87-year-old female with: Dizziness Fall Bradycardia UTI Hypotension possibly related to medications versus UTI versus autonomic dysfunction versus adrenal insufficiency. Hypothyroidism JONATHAN versus CKD Plan: Neuro follow neuro status. Head CT negative for bleed. Avoid sedatives and narcotics. Cardiovascular: Status post 4 L IV fluids. On Levophed for pressor support at 5 mics per minute. Will obtain 2D echo for further evaluation. Check cortisol level. Hold all antihypertensives at this time. Will add Midrin 5 mg p.o. every 8 hourly as needed for SBP less than 90 or map less than 60. May require stress dose steroids however will hold off for now pending review of 2D echo and cortisol level. Pulmonary: Supplemental O2 as needed, bronchodilators as needed. GI/liver: Advance p.o. diet as tolerated. Renal/: IV hydration, strict intake output, monitor and replete electrolytes, follow BUN/creatinine. Follow-up renal ultrasound Heme: Follow CBC ID: Follow-up blood and urine cultures. On empiric antibiotic coverage with IV Rocephin. Endocrine: TSH within normal limits. Check cortisol level. Will add sliding scale insulin for glycemic control. Prophylaxis: SCDs/Lovenox. Condition critical Time spent on critical care excluding procedures 45 minutes
[2017-12-18] MEDS: Insulin NovoLIN Regular Correctional Sugar Inj SQ SCH ×4 (08:28→21:38)
--- NOTE | 2017-12-18 10:59 | US ---
EXAM DATE: 12/18/2017 10:52 AM EDT AGE/SEX: 87 years / Female INDICATIONS: Increased BUN/Creatinine. CLINICAL DATA: This is the patient's initial encounter. Patient reports that signs and symptoms have been present for 1 day and indicates a pain score of 3/10. MEDICAL/SURGICAL HISTORY: Hypertension. Hypothyroidism. Hyperlipidemia. Tonsillectomy. COMPARISON: No prior exams available for comparison. MEASUREMENTS: Right Kidney:__8.0 x 4.3 x 4.3 cm Left Kidney:__9.5 x 5.0 x 5.3 cm FINDINGS: The right kidney is atrophic. No hydronephrosis. Bilateral renal cysts measuring up to 3 cm on the le ft and 1.5 cm on the right. Note is made of a large complex cystic lesion arising from the right adnexa measuring at least 16.6 c m in diameter. Further evaluation with abdomen and pelvic CT is recommended if this has not been rece ntly performed. Bladder is decompressed by Dempsey. CONCLUSION: 1. Large complex mostly cystic lesion arising from the right adnexa with thick septations measuring up to 16.6 cm in diameter. Further evaluation with abdomen and pelvic CT recommended if not recently performed. 2. Bilateral renal cysts. Atrophic right kidney. No hydronephrosis. 3. Bladder decompressed by Dempsey. Electronically signed by: Donenll San MD 12/18/2017 10:58 AM EDT
--- NOTE | 2017-12-18 12:35 | P.CONPAL ---
Consult Service: Palliative Care Requesting Physician: Paul Goel Reason for Consult: a. To assist with evaluation and management of symptoms including: pain, generalized weakness b. To assist medical decision maker(s) with: better understanding of current medical conditions; weighing benefits/burdens of medical treatment options; making medical treatment decisions. Primary Care Provider: Jose Mccoy MD History of Present Illness History of Present Illness: Ms. Valle is an 87 year old female who presented to [facility] ED in [place] after a fall. Apparently the patient tripped over a bathroom scale, striking the left side of her face/forehead on the door frame. No loss of consciousness was reported. Patient had mild discomfort in the affected area; bleeding had resolved spontaneously. Of note, patient takes low-dose aspirin daily. Additional diagnostic data: * Vital signs: Pulse 54, respiration 16, BP 89/49, oxygen saturation 100% on room air and oral temperature of 97.4 * WBC: 7.3, hemoglobin 13.3, hematocrit 40.4, platelets 141, neutrophils 56.1% * Sodium: 137, potassium 4.7, chloride 104, glucose 125, calcium 10.6 * BUN: 40, creatinine 2.70, GFR 17 * Total bilirubin: 1.0, AST 111, ALT 62, alkaline phosphatase 64 * Troponin: 0.07 * Total protein: 5.8, albumin 3.0 * Urinalysis suspicious for UTI * Urine culture pending * CT head revealed no acute intracranial abnormalities * EKG showed no hyperkalemic changes Patient was found to be hypotensive and bradycardic in the ED. Her blood pressure improved slightly with IV fluids but remained low. Blood work in the ED showed BUN of 40 and creatinine of 2.7. Creatinine was 0.9 and BUN was 22 4 months ago. Patient was admitted for further evaluation of significant decline in renal function. An ultrasound of the kidney/renal/bladder revealed a large complex cystic lesion arising from the right adnexa with thick septations measuring 16.6 cm in diameter. Further evaluation with CT abdomen/pelvis is recommended if this has not been recently performed. Bilateral renal cysts. Atrophic right kidney. No hydronephrosis Patient received 4 L normal saline overnight; she remained persistently hypotensive. Critical care was consulted and the patient was started on Levophed for pressor support. The patient was started on empiric Rocephin as her urinalysis was suspicious for UTI. Palliative Care was consulted to assist with symptom management and to discuss with the patient/family the benefits and burdens of her current illnesses and the options regarding future care. Function/Cognitive Trajectory: Patient lives with her grand-daughter. Prior to this admission the patient was ambulating with a cane or rolling walker. Review of Systems Constitutional: Reports weakness Ears, Nose, Mouth, and Throat: Reports abnormal hearing Neurologic: Reports frequent falls PMFSH - History History Provided By: Patient, Family Member - Medical History Medical History: Medical History (Last Reviewed 12/18/17 @ 08:33 by Low Birch) High cholesterol Hypertension Hypothyroidism - Surgical History Surgical History: Surgical History (Last Reviewed 12/18/17 @ 08:33 by Low Birch) Hx of tonsillectomy - Tobacco History Second Hand Smoke Exposure: No Tobacco Use In Past 30 Days: No Smoking Status: Never smoker - Alcohol History How Often Do You Have a Drink Containing Alcohol: Never - Substance Use History Substance History: No History of Abuse - Travel History Recent Travel in the [facility] Within the Last 8 Weeks: No Recent Travel Out of the Country Within the Last 8 Weeks: No - Immunization History Tetanus Immunization: >5 Years Hx Influenza Vaccine This Season: No Medications and Allergies Active Medications: Active Medications Al Hydroxide/Mg Hydroxide (Milk Of Derian Licameron) 30 ml PO Q12H PRN PRN Reason: Mild Constipation Aspirin (Ecotrin) 81 mg PO DAILY [facility] Last Admin: 12/18/17 08:53 Dose: 81 mg Bisacodyl (Dulcolax Supp) 10 mg RECTAL DAILY PRN PRN Reason: SEVERE CONSITIPATION Dextrose (D50w Vial) 50 ml IV.PUSH UNSCH PRN PRN Reason: PER HYPOGLYCEMIA PROTOCOL Glucagon (Glucagon Inj) 1 mg OTHER PRN PRN PRN Reason: for Hypoglycemia Protocol Sodium Chloride (Ns Inj) 1,000 mls @ 100 mls/hr IV.CONT .Q10H [facility] Last Admin: 12/18/17 02:52 Dose: 100 mls/hr Ceftriaxone Sodium 1,000 mg/ (Sodium Chloride) 100 mls @ 200 mls/hr IV.SIG Q24H [facility] Norepinephrine Bitartrate (Levophed-Dextrose 4 Mg/250 Ml Drip) 4 mg in 250 mls @ 7.5 mls/hr IV.SIG TITRATE PRN; Protocol PRN Reason: Per Protocol Last Titration: 12/18/17 06:22 Dose: 5 mcg/min, 18.75 mls/hr Insulin Human Regular (Novolin R Correctional Sugar Inj) 0 units SQ ACHS [facility]; Protocol Last Admin: 12/18/17 08:28 Dose: 3 units Lactulose (Lactulose Liq) 30 ml PO DAILY PRN PRN Reason: SEVERE CONSITIPATION Levothyroxine Sodium (Synthroid) 25 mcg PO DAILY [facility] Last Admin: 12/18/17 08:53 Dose: 25 mcg Midodrine (Proamatine) 5 mg PO Q8HR PRN PRN Reason: SEE DOSE INSTRUCTIONS Ondansetron HCl (Zofran Inj) 4 mg IV.PUSH Q6H PRN PRN Reason: NAUSEA OR VOMITING Pravastatin Sodium (Pravachol) 80 mg PO QPM [facility] Last Admin: 12/17/17 19:57 Dose: 80 mg Sennosides (Senokot) 17.2 mg PO Q12H PRN PRN Reason: Moderate Constipation Sodium Chloride (Ns Flush) 2 ml IV.FLUSH PRN PRN PRN Reason: FLUSH AFTER USING IV ACCESS Allergies Allergy/AdvReac Type Severity Reaction Status Date / Time No Known Allergies Allergy Verified 12/17/17 14:13 Home Medications Medication Instructions Recorded Confirmed Type aspirin [Aspir-81] 81 mg PO DAILY 12/17/17 12/17/17 History levothyroxine 25 mcg PO DAILY 12/17/17 12/17/17 History losartan 25 mg PO DAILY 12/17/17 12/17/17 History metoprolol tartrate 50 mg PO BID 12/17/17 12/17/17 History simvastatin 40 mg PO QPM 12/17/17 12/17/17 History ciprofloxacin HCl [Cipro] 500 mg PO Q OTHER DAY 12/18/17 12/18/17 History Advance Directives Advance Directives Date on File: 12/18/17 Living Will: Yes (Completed 12/18/2017) Healthcare Surrogate: Yes (Grand-daughter (Erum) is designated as the [facility] decision-maker.) Power of Administrative And Program Specialist: Unknown Today's verbally stated goals: Aggressive goals up to the point of cardiopulmonary resuscitation. Family/friends goals: Granddaughter supports patient's medical treatment goals. Ethical and Legal Issues: No known at the call or legal issues impacting care at this time. Physical Exam Vital Signs: Vital Signs - 24 hr 12/17/17 14:06 12/17/17 14:17 12/17/17 14:21 Temperature 97.4 F L Pulse Rate 54 L 55 L 58 L Respiratory Rate 16 18 Blood Pressure 89/49 L 82/50 L Pulse Oximetry 100 98 12/17/17 14:37 12/17/17 14:42 12/17/17 15:38 Temperature Pulse Rate 57 L 56 L Respiratory Rate 16 16 Blood Pressure 83/42 L 90/52 L Pulse Oximetry 97 98 96 12/17/17 16:08 12/17/17 17:12 12/17/17 18:00 Temperature 97.5 F L Pulse Rate 57 L 52 L Respiratory Rate 18 16 Blood Pressure 107/51 L 90/47 L 71/43 L Pulse Oximetry 97 12/17/17 20:00 12/17/17 20:14 12/17/17 21:51 Temperature 97.6 F Pulse Rate 62 68 66 Respiratory Rate 20 18 20 Blood Pressure 81/50 L 99/83 L 73/40 L Pulse Oximetry 96 98 97 12/17/17 22:00 12/17/17 22:09 12/17/17 22:10 Temperature Pulse Rate 64 65 62 Respiratory Rate 32 H 18 23 Blood Pressure 78/40 L 85/41 L 85/41 L Pulse Oximetry 92 L 97 97 12/17/17 22:15 12/17/17 22:30 12/17/17 22:45 Temperature Pulse Rate 72 74 80 Respiratory Rate 29 H 30 H 28 H Blood Pressure 87/66 L 72/43 L 78/44 L Pulse Oximetry 98 97 96 12/17/17 23:00 12/17/17 23:30 12/17/17 23:49 Temperature Pulse Rate 70 75 66 Respiratory Rate 33 H 20 20 Blood Pressure 81/41 L 85/42 L 80/42 L Pulse Oximetry 96 96 96 12/18/17 00:00 12/18/17 00:15 12/18/17 00:30 Temperature 98.3 F 98.3 F Pulse Rate 71 78 72 Respiratory Rate 21 25 H 29 H Blood Pressure 74/39 L 75/39 L 78/38 L Pulse Oximetry 97 97 97 12/18/17 00:51 12/18/17 01:15 12/18/17 01:16 Temperature Pulse Rate 72 76 75 Respiratory Rate 28 H 22 18 Blood Pressure 90/45 L 113/51 L 113/51 L Pulse Oximetry 97 93 L 95 12/18/17 01:32 12/18/17 02:00 12/18/17 02:21 Temperature Pulse Rate 78 68 64 Respiratory Rate 23 20 23 Blood Pressure 91/47 L 71/47 L 72/37 L Pulse Oximetry 96 95 94 L 12/18/17 02:35 12/18/17 03:30 12/18/17 04:00 Temperature 98.2 F Pulse Rate 70 70 65 Respiratory Rate 33 H 28 H 26 H Blood Pressure 73/42 L 80/38 L 74/39 L Pulse Oximetry 96 94 L 95 12/18/17 04:15 12/18/17 04:27 12/18/17 05:00 Temperature 98.0 F Pulse Rate 62 62 62 Respiratory Rate 23 23 24 Blood Pressure 72/46 L 77/46 L 76/42 L Pulse Oximetry 94 L 94 L 93 L 12/18/17 05:13 12/18/17 05:30 12/18/17 05:45 Temperature Pulse Rate 62 62 62 Respiratory Rate 23 23 22 Blood Pressure 75/44 L 76/35 L 75/39 L Pulse Oximetry 93 L 92 L 95 12/18/17 05:49 12/18/17 06:00 12/18/17 06:21 Temperature Pulse Rate 64 62 66 Respiratory Rate 27 H 25 H 20 Blood Pressure 96/54 L 77/40 L 90/47 L Pulse Oximetry 96 93 L 96 12/18/17 06:37 12/18/17 07:00 12/18/17 07:15 Temperature 98.7 F Pulse Rate 62 60 62 Respiratory Rate 20 22 25 H Blood Pressure 97/47 L 96/49 L 94/48 L Pulse Oximetry 96 96 94 L 12/18/17 07:30 12/18/17 07:45 12/18/17 08:00 Temperature Pulse Rate 64 64 68 Respiratory Rate 30 H 36 H 30 H Blood Pressure 100/55 L 103/55 L 117/66 Pulse Oximetry 94 L 94 L 95 12/18/17 08:15 12/18/17 08:30 12/18/17 08:45 Temperature Pulse Rate 70 66 62 Respiratory Rate 23 17 9 L Blood Pressure 111/60 114/65 94/52 L Pulse Oximetry 96 96 96 12/18/17 09:00 12/18/17 09:15 12/18/17 09:30 Temperature Pulse Rate 64 60 56 L Respiratory Rate 18 11 L 23 Blood Pressure 99/48 L 95/50 L 92/53 L Pulse Oximetry 95 96 97 12/18/17 09:45 12/18/17 10:00 12/18/17 10:15 Temperature Pulse Rate 66 60 64 Respiratory Rate 23 26 H 26 H Blood Pressure 93/56 L 86/57 L 98/56 L Pulse Oximetry 96 96 96 12/18/17 10:31 12/18/17 10:46 12/18/17 11:00 Temperature Pulse Rate 60 60 60 Respiratory Rate 29 H 28 H 27 H Blood Pressure 90/50 L 98/52 L 104/55 L Pulse Oximetry 95 96 95 I&O: Intake & Output 12/16/17 12/17/17 12/18/17 12/19/17 06:59 06:59 06:59 06:59 Intake Total 5996 / 5996 Output Total 800 / 800 Balance 5196 / 5196 Weight 66.2 kg Physical Exam: CONSTITUTIONAL/GENERAL: This is an adequately nourished patient, in no apparent distress. TUBES/LINES/DRAINS: SKIN: No jaundice, rashes, or lesions. Ecchymoses on upper extremities. No wounds seen anteriorly. Skin temperature appropriate. Not diaphoretic. HEAD: Atraumatic. Normocephalic. EYES: Pupils equal and round and reactive. Extraocular motions intact. No scleral icterus. No injection or drainage. Fundi not examined. ENT: Hearing grossly normal. Nose without bleeding or purulent drainage. Throat without visible erythema, exudates, masses, or lesions. NECK: Trachea midline. Supple, nontender. No palpable thyroid enlargement or nodularity. CARDIOVASCULAR: Regular rate and rhythm without murmurs, gallops, or rubs. No JVD. Peripheral pulses symmetric. RESPIRATORY/CHEST: Symmetric, unlabored respirations. Clear to auscultation. Breath sounds equal bilaterally. No wheezes, rales, or rhonchi. GASTROINTESTINAL: Abdomen soft, non-tender, nondistended. No hepato-splenomegaly , or palpable masses. No guarding. Bowel sounds present. GENITOURINARY: Without palpable bladder distension. Dempsey catheter in place. MUSCULOSKELETAL: Extremities without clubbing, cyanosis, or edema. No joint tenderness or effusion noted. No calf tenderness. No mottling or clubbing. LYMPHATICS: No palpable cervical or supraclavicular adenopathy. NEUROLOGICAL: Awake and alert. Motor and sensory grossly within normal limits. Follows commands. Cognitively sharp. Moves all extremities. PSYCHIATRIC: No obvious anxiety/depression. no apparent hallucinations or other psychotic thought process. Diagnostic Tests Laboratory: Laboratory Results - last 72 hr 12/17/17 12/17/17 12/17/17 14:00 14:00 14:00 CBC w Diff Auto diff final WBC 7.3 RBC 4.26 Hgb 13.3 Hct 40.4 MCV 95.0 MCH 31.3 MCHC 32.9 RDW 14.8 Plt Count 141 L MPV 8.1 Neut % (Auto) 56.1 Lymph % (Auto) 27.5 [place] % (Auto) 9.5 H Eos % (Auto) 3.0 Baso % (Auto) 3.9 H Neut # (Auto) 4.1 Lymph # (Auto) 2.0 [place] # (Auto) 0.7 Eos # (Auto) 0.2 Baso # (Auto) 0.3 H WBC Differential . Differential Comment . Sodium 137 Potassium 4.7 Chloride 104 Carbon Dioxide 24.4 Anion Gap 9 BUN 40 H Creatinine 2.70 H Estimated GFR 17 L POC Glucose Random Glucose 125 H Lactic Acid Calcium 10.6 H Total Bilirubin 1.0 Direct Bilirubin Indirect Bilirubin AST 111 H ALT 62 H Alkaline Phosphatase 64 Troponin I 0.07 H 0.07 H Total Protein 5.8 L Albumin 3.0 L TSH 3.670 Free T4 1.56 H Cortisol Ur Collection Type Urine Color Urine Clarity Urine pH Ur Specific [place] Urine Protein Urine Glucose (UA) Urine Ketones Urine Occult Blood Urine Nitrate Urine Bilirubin Urine Urobilinogen Ur Leukocyte Esterase Urine WBC Urine WBC Clumps Ur Squamous Epith Cells Ur Transition Epith Cell Urine Bacteria Hyaline Casts Micro UA Comment Urine Culture Comments 12/17/17 12/17/17 12/18/17 14:27 15:50 02:35 CBC w Diff WBC RBC Hgb Hct MCV MCH MCHC RDW Plt Count MPV Neut % (Auto) Lymph % (Auto) [place] % (Auto) Eos % (Auto) Baso % (Auto) Neut # (Auto) Lymph # (Auto) [place] # (Auto) Eos # (Auto) Baso # (Auto) WBC Differential Differential Comment Sodium 140 Potassium 4.0 Chloride 110 H Carbon Dioxide 22.2 Anion Gap 8 BUN 40 H Creatinine 2.70 H Estimated GFR 17 L POC Glucose 117 H Random Glucose 276 H D Lactic Acid Calcium 8.4 L D Total Bilirubin 0.5 Direct Bilirubin 0.3 H Indirect Bilirubin 0.2 AST 95 H ALT 55 H Alkaline Phosphatase 61 Troponin I Total Protein 4.5 L D Albumin 2.3 L D TSH Free T4 Cortisol Ur Collection Type Cath Urine Color Yellow Urine Clarity Slightly cloudy Urine pH 6.0 Ur Specific [place] 1.020 Urine Protein 30 H Urine Glucose (UA) Negative Urine Ketones Trace H Urine Occult Blood Negative Urine Nitrate Negative Urine Bilirubin Negative Urine Urobilinogen 0.2 Ur Leukocyte Esterase Small H Urine WBC 6-8 H Urine WBC Clumps Few H Ur Squamous Epith Cells 0-5 Ur Transition Epith Cell 0-3 Urine Bacteria Rare H Hyaline Casts 4-10 H Micro UA Comment Culture indicated Urine Culture Comments Culture indicated 12/18/17 12/18/17 12/18/17 02:35 02:35 07:47 CBC w Diff Auto diff final WBC 7.3 RBC 3.37 L Hgb 10.6 L D Hct 32.2 L MCV 95.5 MCH 31.4 MCHC 32.9 RDW 14.6 Plt Count 108 L MPV 7.6 Neut % (Auto) 65.0 Lymph % (Auto) 24.9 [place] % (Auto) 6.3 Eos % (Auto) 2.6 Baso % (Auto) 1.2 Neut # (Auto) 4.7 Lymph # (Auto) 1.8 [place] # (Auto) 0.5 Eos # (Auto) 0.2 Baso # (Auto) 0.1 WBC Differential . Differential Comment . Sodium Potassium Chloride Carbon Dioxide Anion Gap BUN Creatinine Estimated GFR POC Glucose 216 H Random Glucose Lactic Acid 1.4 Calcium Total Bilirubin Direct Bilirubin Indirect Bilirubin AST ALT Alkaline Phosphatase Troponin I Total Protein Albumin TSH Free T4 Cortisol Ur Collection Type Urine Color Urine Clarity Urine pH Ur Specific [place] Urine Protein Urine Glucose (UA) Urine Ketones Urine Occult Blood Urine Nitrate Urine Bilirubin Urine Urobilinogen Ur Leukocyte Esterase Urine WBC Urine WBC Clumps Ur Squamous Epith Cells Ur Transition Epith Cell Urine Bacteria Hyaline Casts Micro UA Comment Urine Culture Comments 12/18/17 12/18/17 08:55 11:50 CBC w Diff WBC RBC Hgb Hct MCV MCH MCHC RDW Plt Count MPV Neut % (Auto) Lymph % (Auto) [place] % (Auto) Eos % (Auto) Baso % (Auto) Neut # (Auto) Lymph # (Auto) [place] # (Auto) Eos # (Auto) Baso # (Auto) WBC Differential Differential Comment Sodium Potassium Chloride Carbon Dioxide Anion Gap BUN Creatinine Estimated GFR POC Glucose 296 H Random Glucose Lactic Acid Calcium Total Bilirubin Direct Bilirubin Indirect Bilirubin AST ALT Alkaline Phosphatase Troponin I Total Protein Albumin TSH Free T4 Cortisol 21.3 Ur Collection Type Urine Color Urine Clarity Urine pH Ur Specific [place] Urine Protein Urine Glucose (UA) Urine Ketones Urine Occult Blood Urine Nitrate Urine Bilirubin Urine Urobilinogen Ur Leukocyte Esterase Urine WBC Urine WBC Clumps Ur Squamous Epith Cells Ur Transition Epith Cell Urine Bacteria Hyaline Casts Micro UA Comment Urine Culture Comments Result Diagrams: 12/19/17 04:35 12/19/17 04:35 Microbiology: Microbiology 12/17/17 15:50 Urine Culture - Preliminary Catheterized Urine No growth in 24 hours Imaging: Head CT 12/17/17 14:28 CONCLUSION: 1. No acute intracranial abnormalities. . Abdomen/Bladder Ultrasound 12/18/17 00:00 CONCLUSION: 1. Large complex mostly cystic lesion arising from the right adnexa with thick septations measuring up to 16.6 cm in diameter. Further evaluation with abdomen and pelvic CT recommended if not recently performed. 2. Bilateral renal cysts. Atrophic right kidney. No hydronephrosis. 3. Bladder decompressed by Dempsey. Patient/Family Conference Present at Family Conference: Met with patient and her grand-daughter at bedside Family Conference Location: Bedside Issues Discussed: * Palliative care role, purpose, approach * Patient/family understanding of the current medical problems * Questions answered to the best of my ability * Palliative care contact information provided Assessment and Plan Pertinent Non-Medical Issues: Psychosocial: Patient is originally from [place], [place]. She had 3 sons and 1 daughter. Her youngest son is . She moved to [place] approximately 20+ years ago. Her granddaughter moved to [place] in high school to live with her and lives with her still. Spiritual: Moravian coy Legal: Patient completed the healthcare surrogate designation form on 12/18/2017 designating her granddaughter (Erum) at the healthcare surrogate medical decision maker. A Living will was completed at this time as well Ethical issues impacting care: No known ethical issues impacting care at this time. Important Contacts: Erum England, granddaughter: [phone] Prognosis: Patient is an 87-year-old female who recently presented to the ED after a fall. Patient was admitted for further evaluation of hypotension, UTI, and worsening renal functioning. Given the patient's age in addition to multiple medical conditions, she will be at risk for further decline and possible complications. Code Status: No Code DNR Plan: * NO CODE-DNR/DNI * A lengthy discussion was had about the process of cardiopulmonary resuscitation. Patient requests that her CODE STATUS be changed to on NO CODE- DNR/DNI. Patient's granddaughter, Erum, was present during these conversations and stated the patient's expressed wishes were consistent with their previous conversations about CODE STATUS. * Living will and healthcare surrogate designation forms were completed on 2017. Copies of these documents were placed in the patient's paper chart. * Patient designates her grand-daughter, Erum, as her healthcare surrogate decision maker. * GOALS: Aggressive up to the point of cardiopulmonary resuscitation * Symptom management-generalized weakness: Patient lives with her grand- daughter. [facility] ED after a fall. Prior to this admission the patient was ambulating with a cane or rolling walker. Patient may benefit from home health visits after discharge. Physical therapy is following. * Palliative care will follow this patient throughout her hospitalization to establish trust, assist with symptom management and clarification of medical treatment goals. Appreciation Thank you for the opportunity to participate in the care of Callie Valle. Attestation Attestation: To help prompt me to consider important information that might be impacting today's encounter and assessment, information from prior notes written by myself or my colleagues may have been "brought forward" into today's note. My signature on this note, however, is an attestation that I personally performed the exam, history, and/or decision-making noted today, and, unless otherwise indicated, the interactions with patient, family, and staff as well as the review of records all occurred today. I also attest that the listed assessment and stated plan reflect my best clinical judgment today based on the combination of historical information, prior notes, and today's exam/ interactions. When time spent is documented, it refers only to time spent today by the signer, or if indicated, combined time spent today by collaborating physician/nurse practitioner.
--- NOTE | 2017-12-18 17:02 | ECHRPT ---
Indication: HYPERTENSIVE HEART DISEASE CONCLUSIONS Normal left ventricular size. Wall thickness is normal. The left ventricular systolic function is hyperdynamic with an estimated ejection fraction in the ra nge of 65- 70%. Aortic valve sclerosis is present. [id number] aortic valve regurgitation. There is mild to moderate tricuspid valve regurgitation. The estimated pulmonary arterial pressure is 38.5 mmHg. Trivial pulmonary valve regurgitation. Trace pericardial effusion. BP: / HR: Rhythm: Sinus MEASUREMENTS (Male / Female) Normal Values Technical Quality:Fair 2D ECHO LV Diastolic Diameter PLAX 4.4 cm 4.2 - 5.9 / 3.9 - 5.3 cm LV Systolic Diameter PLAX 3.1 cm IVS Diastolic Thickness 0.9 cm 0.6 - 1.0 / 0.6 - 0.9 cm LVPW Diastolic Thickness 0.9 cm 0.6 - 1.0 / 0.6 - 0.9 cm LV Relative Wall Thickness 0.4 RV Internal Dim ED PLAX 2.2 cm LVOT Diameter 2.1 cm Aortic Root Diameter 3.2 cm LA Systolic Diameter LX 2.6 cm 3.0 - 4.0 / 2.7 - 3.8 cm M-MODE AV Cusp Separation MM 1.7 cm DOPPLER AV Peak Velocity 210.0 cm/s AV Peak Gradient 17.6 mmHg AV Mean Gradient 10.0 mmHg AV Velocity Time Integral 47.8 cm AI Peak Velocity 369.0 cm/s AI Peak Gradient 54.5 mmHg AI Pressure Half Time 568.0 ms LVOT Peak Velocity 105.0 cm/s LVOT Peak Gradient 4.4 mmHg LVOT Velocity Time Integral 26.5 cm AV Area Cont Eq vti 1.9 cm AV Area Cont Eq pk 1.7 cm Mitral E Point Velocity 116.0 cm/s Mitral A Point Velocity 93.8 cm/s Mitral E to A Ratio 1.2 LV E' Lateral Velocity 4.3 cm/s Mitral E to LV E' Lateral Ratio 27.0 LV E' Septal Velocity 4.9 cm/s Mitral E to LV E' Septal Ratio 23.8 TR Peak Velocity 267.0 cm/s TR Peak Gradient 28.5 mmHg Right Atrial Pressure 10.0 mmHg Pulmonary Artery Systolic Pressu 38.5 mmHg Right Ventricular Systolic Press 38.5 mmHg PV Peak Velocity 66.2 cm/s PV Peak Gradient 1.8 mmHg FINDINGS LEFT VENTRICLE Normal left ventricular size. Wall thickness is normal. The left ventricular systolic function is hyperdynamic with an estimated ejection fraction in the ra nge of 65- 70%. RIGHT VENTRICLE Normal right ventricular size and systolic function. LEFT ATRIUM The left atrial size is normal. RIGHT ATRIUM The right atrial size is normal. ATRIAL SEPTUM The interatrial septum not well visualized. AORTA The aortic root and proximal ascending aorta are normal in size on limited imaging. MITRAL VALVE Structurally normal mitral valve. No mitral valve stenosis or regurgitation. AORTIC VALVE Aortic valve sclerosis is present. [id number] aortic valve regurgitation. TRICUSPID VALVE There is mild to moderate tricuspid valve regurgitation. The estimated pulmonary arterial pressure is 38.5 mmHg. PULMONARY VALVE Trivial pulmonary valve regurgitation. VESSELS The inferior vena cava was not well visualized. PERICARDIUM Trace pericardial effusion. Santino Rudolph MD, FACC (Electronically Signed) Final Date:18 December 2017 17:01
[2017-12-19] MEDS: Sod Chloride 0.9% Inj 1,000 ML IV.CONT SCH (03:39)
--- NOTE | 2017-12-19 05:26 | XR ---
EXAM DATE: 12/19/2017 5:19 AM EDT AGE/SEX: 87 years / Female INDICATIONS: Shortness of breath. CLINICAL DATA: This is the patient's initial encounter. Patient reports that signs and symptoms have been present for 1 day and indicates a pain score of Nonresponsive. MEDICAL/SURGICAL HISTORY: Hypertension. None. COMPARISON: No prior exams available for comparison. FINDINGS: There is marked elevation of the left hemidiaphragm versus diaphragmatic hernia containing bowel. Fav or the former. There is consolidation in the right lung base identified. Cardiomegaly is seen. 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 Right lower lobe consolidation. Electronically signed by: Emmett Nicole MD 12/19/2017 5:25 AM EDT
[2017-12-19 06:05] LABS: Baso # (Auto) 0.1 th/mm3 (0.0-0.2); Baso % (Auto) 0.8 % (0.0-2.0); Eos # (Auto) 0.6 th/mm3 (0.0-0.4); Eos % (Auto) 8.4 % (0.0-4.0); Lymph # (Auto) 2.4 th/mm3 (1.0-4.8); Lymph % (Auto) 31.2 % (9.0-44.0); Mean Corpuscular HGB Conc 33.5 % (32.0-36.0); Mean Corpuscular Hemoglobin 31.8 pg (27.0-34.0); Mean Corpuscular Volume 94.8 fL (80.0-100.0); Mono # (Auto) 1.2 th/mm3 (0.0-0.9); Mono % (Auto) 15.9 % (0.0-8.0); Neut # (Auto) 3.4 th/mm3 (1.8-7.7); Neut % (Auto) 43.7 % (16.0-70.0); Platelet Count 100 th/mm3 (150-450); Red Blood Count 3.16 mil/mm3 (4.00-5.30); Red Cell Distribution Width 14.6 % (11.6-17.2); White Blood Count 7.7 th/mm3 (4.0-11.0)
[2017-12-19 06:21] LABS: Chloride 114 meq/L (98-107); Potassium 4.1 meq/L (3.5-5.1); Sodium 144 meq/L (136-145)
[2017-12-19 06:26] LABS: Calcium 8.3 mg/dL (8.5-10.1)
[2017-12-19 06:27] LABS: Albumin 2.2 g/dL (3.4-5.0); Anion Gap 8 meq/L (5-15)
[2017-12-19 06:33] LABS: Alanine Aminotransferase 42 U/L (10-53); Alkaline Phosphatase 56 U/L (45-117); Aspartate Aminotransferase 67 U/L (15-37); Blood Urea Nitrogen 37 mg/dL (7-18); Glomerular Filtration Rate 22 mL/min (>89); Glucose,Random 131 mg/dL (74-106); Total Protein 4.3 g/dL (6.4-8.2)
--- NOTE | 2017-12-19 07:45 | ECG ---
Date Performed: 12/17/2017 Time Performed: 21:11:26 PTAGE: 87 years EKG: Sinus rhythm NORMAL ECG PREVIOUS TRACING : 12/17/2017 15.03 DOCTOR: Paulette Zambrano Interpretating Date/Time 12/19/2017 07:39:05
--- NOTE | 2017-12-19 07:50 | ECG ---
Date Performed: 12/17/2017 Time Performed: 15:03:22 PTAGE: 87 years EKG: SINUS BRADYCARDIA BORDERLINE ECG NO PREVIOUS TRACING DOCTOR: Paulette Zambrano Interpretating Date/Time 12/19/2017 07:42:02
[2017-12-19] MEDS: Insulin NovoLIN Regular Correctional Sugar Inj SQ SCH ×4 (08:34→21:17)
--- NOTE | 2017-12-19 12:41 | P.PNCC ---
Subjective Subjective Remarks/Hospital Course: 12/18: 87 Y/O female with a medical history significant for hypotension presented to the emergency room with her daughter after a mechanical fall at home. Patient reports that she normally goes to bed around 2 in the morning and sleep in most days. She woke up on12/17 to get ready and felt dizzy while walking to the bathroom. She tripped on the scale on the bathroom with the left side of her face striking the door frame. She denied any lightheadedness, no chest pain. She is short of breath at baseline with activities. She does not normally eat breakfast. Her blood pressure in the emergency room was noted to the in the 80's/50's and heart rate in the 50's. She was given a liter of NS and BP improved but still low in the 90's/50's. Daughter reports that her blood pressure is usually in the normal range or elevated. Patient was admitted by hospitalist service to the ICU. She received a total of 4 L normal saline overnight. Hypotension persisted hence critical care consult was requested by hospitalist service and patient was started on Levophed for pressor support. She had been started on empiric Rocephin as her UA suggested a UTI. When I evaluated the patient she was resting in bed comfortably not in any acute distress. She denied any chest pain or shortness of breath. Denied any diarrhea melena or rectal bleeding. Denies any abdominal pain. She denied any fever or chills. She is at home with her granddaughter. She tells me that she does have diabetes this is not listed in her past medical history. She was on metoprolol and losartan at home which were discontinued on admission in view of bradycardia and hypotension. She denies any heart or lung problems before. Denies any fever or chills. 12/19: Resting comfortably on room air. Not in any acute distress. Levophed being titrated off. On Midrin as needed. Cortisol level normal. Heart rate remains bradycardic in the 50s-60s. Possible beta-brigida effect. If she remains bradycardic with borderline blood pressures consider cardiac eval. 2D echo with aortic sclerosis. Objective Vital Signs / I&O: Vital Signs 12/18/17 13:00 12/18/17 14:00 12/18/17 14:31 Temperature Pulse Rate 56 L 54 L 64 Respiratory Rate 25 H 23 27 H Blood Pressure 98/50 L 107/51 L 111/57 L Pulse Oximetry 96 98 96 12/18/17 14:46 12/18/17 15:00 12/18/17 16:01 Temperature Pulse Rate 58 L 58 L 60 Respiratory Rate 28 H 16 26 H Blood Pressure 102/60 114/53 L 100/51 L Pulse Oximetry 97 97 97 12/18/17 16:31 12/18/17 16:46 12/18/17 17:00 Temperature Pulse Rate 54 L 52 L 66 Respiratory Rate 23 24 30 H Blood Pressure 97/50 L 90/51 L 99/55 L Pulse Oximetry 98 98 94 L 12/18/17 17:16 12/18/17 17:31 12/18/17 18:00 Temperature Pulse Rate 58 L 62 64 Respiratory Rate 29 H 22 20 Blood Pressure 108/56 L 112/62 102/55 L Pulse Oximetry 97 97 96 12/18/17 18:31 12/18/17 19:00 12/18/17 20:00 Temperature Pulse Rate 60 50 L 54 L Respiratory Rate 39 H 16 28 H Blood Pressure 100/51 L 90/50 L 92/51 L Pulse Oximetry 95 97 97 12/18/17 20:35 12/18/17 21:00 12/18/17 22:00 Temperature 98.3 F Pulse Rate 66 52 L Respiratory Rate 22 20 Blood Pressure 107/59 L 99/47 L Pulse Oximetry 98 96 96 12/18/17 23:31 12/19/17 00:00 12/19/17 01:00 Temperature Pulse Rate 50 L 48 L 47 L Respiratory Rate 23 20 18 Blood Pressure 76/38 L 80/47 L 98/50 L Pulse Oximetry 97 96 97 12/19/17 02:00 12/19/17 02:46 12/19/17 03:01 Temperature Pulse Rate 48 L 48 L 52 L Respiratory Rate 23 23 Blood Pressure 95/48 L 95/48 L 98/51 L Pulse Oximetry 98 98 98 12/19/17 03:16 12/19/17 03:31 12/19/17 04:00 Temperature Pulse Rate 48 L 52 L 56 L Respiratory Rate 23 25 H 27 H Blood Pressure 106/49 L 116/63 96/59 L Pulse Oximetry 98 99 96 12/19/17 04:16 12/19/17 04:31 12/19/17 05:00 Temperature 99.1 F Pulse Rate 52 L 54 L 76 Respiratory Rate 30 H 27 H 27 H Blood Pressure 110/57 L 120/53 L 106/49 L Pulse Oximetry 96 96 12/19/17 05:31 12/19/17 05:46 12/19/17 06:01 Temperature Pulse Rate 48 L 50 L 54 L Respiratory Rate 22 19 26 H Blood Pressure 108/48 L 113/54 L 113/50 L Pulse Oximetry 97 96 97 12/19/17 07:00 12/19/17 07:16 12/19/17 07:31 Temperature Pulse Rate 52 L 54 L 52 L Respiratory Rate 24 24 22 Blood Pressure 104/50 L 118/54 L 110/55 L Pulse Oximetry 95 95 96 12/19/17 07:51 12/19/17 08:00 12/19/17 08:01 Temperature 98.6 F Pulse Rate 68 54 L 60 Respiratory Rate 32 H 41 H Blood Pressure 120/58 L 103/64 Pulse Oximetry 94 L 96 95 12/19/17 08:16 12/19/17 08:31 12/19/17 08:46 Temperature Pulse Rate 64 70 66 Respiratory Rate 47 H 45 H 43 H Blood Pressure 96/57 L 96/58 L 92/52 L Pulse Oximetry 97 96 94 L 12/19/17 09:00 12/19/17 09:16 12/19/17 09:31 Temperature Pulse Rate 52 L 52 L 54 L Respiratory Rate 29 H 32 H 36 H Blood Pressure 82/35 L 83/44 L 95/47 L Pulse Oximetry 96 97 96 12/19/17 09:46 12/19/17 10:00 12/19/17 10:16 Temperature Pulse Rate 50 L 48 L 50 L Respiratory Rate 23 22 27 H Blood Pressure 98/49 L 103/52 L 103/53 L Pulse Oximetry 97 97 96 12/19/17 10:31 12/19/17 10:46 12/19/17 11:00 Temperature Pulse Rate 48 L 50 L 50 L Respiratory Rate 21 22 16 Blood Pressure 98/50 L 83/46 L 94/46 L Pulse Oximetry 96 97 95 12/19/17 11:16 Temperature Pulse Rate 52 L Respiratory Rate 28 H Blood Pressure 86/55 L Pulse Oximetry 95 Intake & Output 12/18/17 12/19/1718 18:59 06:59 18:59 Intake Total 1958 / 1958 250 / 250 52 / 52 Output Total 550 / 550 1000 / 1000 Balance 1409 / 1409 -750 / -750 52 / 52 Weight 73.1 kg Intake: IV 999 / 999 250 / 250 52 / 52 NS Inj 1,000 ML @ 100 mls/hr IV 999 / 999 .CONT .Q10H IRIS Rx#:[id number] Levophed-Dextrose 4 mg/250 ml 250 / 250 / 52 Drip 4 mg In 250 ml @ 2 MCG/MIN 7.5 mls/hr IV.SIG TITRATE PRN Rx#:[id number] Oral 960 / 960 Output: Urine 550 / 550 1000 / 1000 Other: Date of Last Bowel Movement 12/17/17 12/17/17 Result Diagrams: 12/19/17 04:35 12/19/17 04:35 Imaging: Impressions Head CT 12/17/17 14:28 CONCLUSION: 1. No acute intracranial abnormalities. . Abdomen/Bladder Ultrasound 12/18/17 00:00 CONCLUSION: 1. Large complex mostly cystic lesion arising from the right adnexa with thick septations measuring up to 16.6 cm in diameter. Further evaluation with abdomen and pelvic CT recommended if not recently performed. 2. Bilateral renal cysts. Atrophic right kidney. No hydronephrosis. 3. Bladder decompressed by Dempsey. Chest X-Ray 12/19/17 05:00 CONCLUSION: Left hemidiaphragmatic hernia versus elevated left hemidiaphragm. Right lower lobe consolidation. Objective Remarks: HEENT/Neuro: Ecchymosis around left eye. No pallor or icterus, tongue moist, GUDELIA, Awake alert oriented 3, nonfocal grossly, moving all 4 extremities Neck: No JVD Chest/pulmonary: CTA bilaterally Cardiovascular: S1-S2 regular no gallop or murmur GI/abdomen: Soft, nontender, bowel sounds present Extremities: Warm bilaterally, no edema Assessment and Plan - Assessment and Plan Plan: 87-year-old female with: Dizziness Fall Bradycardia UTI Hypotension possibly related to medications versus UTI versus autonomic dysfunction versus adrenal insufficiency. Hypothyroidism JONATHAN versus CKD Plan: Neuro follow neuro status. Head CT negative for bleed. Avoid sedatives and narcotics. Cardiovascular: Status post 4 L IV fluids. Levophed titrated off this morning. 2D echo with aortic sclerosis, pulmonary hypertension, tricuspid regurgitation. Cortisol level 21. Hold all antihypertensives at this time. Will add Midrin 5 mg p.o. every 8 hourly as needed for SBP less than 90 or map less than 60. Pulmonary: Supplemental O2 as needed, bronchodilators as needed. GI/liver: Advance p.o. diet as tolerated. Renal/: IV hydration, strict intake output, monitor and replete electrolytes, follow BUN/creatinine. Renal ultrasound noted with adnexal mass. Will require follow up with HOME ATTENDANT though doubt she is a surgical candidate considering age. Will obtain CT abdomen pelvis for further evaluation Heme: Follow CBC ID: Follow-up blood and urine cultures. On empiric antibiotic coverage with IV Rocephin for UTI. Endocrine: TSH within normal limits. Cortisol level 21. Sliding scale insulin for glycemic control. Prophylaxis: SCDs/Lovenox. Consult and transfer to hospitalist service for further medical management, critical care will be signing off, please reconsult if needed.
[2017-12-19] MEDS ORDERED: Diatrizoate Meglum/Diatrizoate Sod Liq 9 ML UDC PO ONE (14:10)
--- NOTE | 2017-12-19 17:41 | CT ---
EXAM DATE: 12/19/2017 5:29 PM EDT AGE/SEX: 87 years / Female INDICATIONS: Abnormal ultrasound. CLINICAL DATA: This is the patient's initial encounter. Patient reports that signs and symptoms have been present for 2 days and indicates a pain score of 0/10. MEDICAL/SURGICAL HISTORY: Hypertension. Hypercholesterolemia. Hypothyroidism. Tonsillectomy. RADIATION DOSE: 18.03 CTDI (mGy) COMPARISON: [facility], US KIDNEY/RENAL/BLADDER, 12/18/2017.. . TECHNIQUE: Multiple contiguous axial images were obtained through the abdomen. Images were obtained using multiple row detector helical technique. Using automated exposure control and adjustment of the mA and/or kV according to patient size, radiation dose was kept as low as reasonably achievable to o btain optimal diagnostic quality images. DICOM format image data is available electronically for rev iew and comparison. FINDINGS: Lower Lungs: A very large diaphragmatic hernia is observed containing the entire stomach as well as t he transverse colon. A tiny pericardial effusion noted. Tiny bilateral pleural effusions.. Liver: The liver has a homogeneous density without space-occupying lesion. There is no dilation of th e biliary tree. Layering high density material consistent with tiny stones within the lumen of the ga llbladder. No gallbladder wall thickening or surrounding fluid observed. Granulomatous calcification seen involving the liver. Spleen: Homogeneous density without enlargement. Pancreas: Unremarkable without mass or calcification. Kidneys: Normal in size and shape. No evidence of mass or hydronephrosis. Bilateral cortical renal c ysts. The largest is on the left measuring 3.1 cm. Adrenal Glands: Unremarkable. Aorta: Diffuse calcified atheromatous plaque throughout the aorta and inflow vessels. No aneurysmal change observed.. Bowel/Mesentery: The bowel loops are grossly unremarkable. The cecum and sigmoid colon have a normal configuration. Abdominal Wall: Intact. Retroperitoneum: No evidence of adenopathy in the retrocrural, para-aortic, or deep pelvic regions. Bladder: Contains a Dempsey balloon and is totally decompressed.. Reproductive Organs: A large septated cystic mass is seen involving the pelvis. There are to lobules to this lesion. Within the anterior aspects of the pelvis just anterior to the uterus there is a 22. 6 x 18.9 x 10.6 cm cystic mass. Within the cul-de-sac extending anteriorly towards the left is a seco nd component that measures 18.1 x 9.8 x 6.2 cm. The uterus is displaced towards the patient's right.. Inguinal: The inguinal region is unremarkable without evidence of adenopathy. Bony Structures: Unremarkable. CONCLUSION: 1. Either 2 separate or single bilobed cystic mass involving the pelvis as detailed above. This is p oorly characterize without IV contrast. The 2 components measure 22.6 cm and 18.1 cm in greatest dime nsion respectively. 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 2. Large diaphragmatic hernia containing the entire stomach and portions of the transverse colon. 3. Bilateral renal cysts. 4. Cholelithiasis. Electronically signed by: Esteban Cotto MD 12/19/2017 5:39 PM EDT
[2017-12-20 04:41] LABS: Baso # (Auto) 0.1 th/mm3 (0.0-0.2); Baso % (Auto) 2.2 % (0.0-2.0); Eos # (Auto) 0.4 th/mm3 (0.0-0.4); Eos % (Auto) 5.8 % (0.0-4.0); Hematocrit 28.2 % (35.0-46.0); Hemoglobin 9.3 gm/dL (11.6-15.3); Lymph # (Auto) 2.1 th/mm3 (1.0-4.8); Lymph % (Auto) 34.6 % (9.0-44.0); Mean Corpuscular HGB Conc 32.8 % (32.0-36.0); Mean Corpuscular Hemoglobin 31.1 pg (27.0-34.0); Mean Corpuscular Volume 94.7 fL (80.0-100.0); Mean Platelet Volume 7.9 fL (7.0-11.0); Mono # (Auto) 0.6 th/mm3 (0.0-0.9); Mono % (Auto) 10.3 % (0.0-8.0); Neut % (Auto) 47.1 % (16.0-70.0); Platelet Count 74 th/mm3 (150-450); Red Blood Count 2.98 mil/mm3 (4.00-5.30); Red Cell Distribution Width 15.1 % (11.6-17.2); White Blood Count 6.2 th/mm3 (4.0-11.0)
[2017-12-20 04:58] LABS: Acanthocytes 1+; Platelet Morphology Normal (Normal)
[2017-12-20] MEDS: Insulin NovoLIN Regular Correctional Sugar Inj SQ SCH ×3 (09:44→16:51)
--- NOTE | 2017-12-20 10:05 | P.PN ---
Subjective Interval history: Follow-up from ICU management. Patient initially with hypotension and status post mechanical fall at home. Patient seen and examined, sitting up in chair comfortably in no apparent distress. Blood pressure with map of 57 this morning. Midodrine administered, will assess response. Patient status post Levophed drip which was titrated off yesterday morning. Patient was initially bradycardic, after review patient's heart rate has stayed in the 50s and 60s. She is comfortable on room air, denies any acute events overnight. Denies any chest pain, shortness of breath. 1430: Spoke to granddaughter and patient at length about ovarian mass. Patient has made it clear if malignant she does not want treatment for it. Granddaughter is expressing that she would at least like a diagnosis of what this mass might be,. Dr. Butler updated as well. Will refer outpatient to follow up with him regarding treatment options. Palliative has also been updated and requested to return to revisit patient. Physical Exam Vital signs: Vital Signs 12/19/17 10:16 12/19/17 10:31 12/19/17 10:46 Temperature Pulse Rate 50 L 48 L 50 L Respiratory Rate 27 H 21 22 Blood Pressure 103/53 L 98/50 L 83/46 L Pulse Oximetry 96 96 97 12/19/17 11:00 12/19/17 11:16 12/19/17 11:31 Temperature Pulse Rate 50 L 52 L 56 L Respiratory Rate 16 28 H 29 H Blood Pressure 94/46 L 86/55 L 92/52 L Pulse Oximetry 95 95 95 12/19/17 11:43 12/19/17 12:00 12/19/17 13:00 Temperature 97.8 F Pulse Rate 72 58 L 70 Respiratory Rate 41 H 36 H 38 H Blood Pressure 114/60 102/53 L 92/54 L Pulse Oximetry 95 95 97 12/19/17 13:34 12/19/17 14:00 12/19/17 15:00 Temperature Pulse Rate 60 60 76 Respiratory Rate 27 H 31 H 25 H Blood Pressure 97/52 L 96/52 L 121/68 Pulse Oximetry 96 96 95 12/19/17 16:00 12/19/17 17:00 12/19/17 18:00 Temperature 97.6 F Pulse Rate 64 60 74 Respiratory Rate 32 H 35 H 47 H Blood Pressure 99/50 L 107/54 L 91/58 L Pulse Oximetry 95 96 93 L 12/19/17 19:00 12/19/17 19:53 12/19/17 21:00 Temperature 97.5 F L 97.5 F L Pulse Rate 53 L 52 L Respiratory Rate 32 H 24 33 H Blood Pressure 109/64 107/58 L 104/63 Pulse Oximetry 97 98 12/19/17 22:00 12/19/17 23:00 12/20/17 00:00 Temperature 98.1 F Pulse Rate 52 L 60 Respiratory Rate 31 H 37 H Blood Pressure 90/60 L 73/37 L 96/57 L Pulse Oximetry 98 93 L 12/20/17 00:49 12/20/17 02:00 12/20/17 03:00 Temperature Pulse Rate 82 76 58 L Respiratory Rate 33 H 22 Blood Pressure 110/52 L 91/44 L 104/84 Pulse Oximetry 96 91 L 12/20/17 04:00 12/20/17 05:00 12/20/17 05:36 Temperature 98.1 F Pulse Rate 64 66 68 Respiratory Rate 23 28 H Blood Pressure 94/48 L 94/44 L 98/44 L Pulse Oximetry 92 L 92 L 90 L 12/20/17 08:00 12/20/17 09:00 Temperature 98.4 F 98.4 F Pulse Rate 72 Respiratory Rate 19 Blood Pressure 105/53 L Pulse Oximetry 93 L Intake & Output 12/19/17 12/20/17 12/20/17 18:59 06:59 18:59 Intake Total 992 / 992 120 / 120 240 / 240 Output Total 950 / 950 700 / 700 Balance 42 / 42 -580 / -580 240 / 240 Weight 74.3 kg Intake: IV Levophed-Dextrose 4 mg/250 ml Drip 4 mg In 250 ml @ 2 MCG/MIN 7.5 mls/hr IV.SIG TITRATE PRN Rx#:[id number] Oral 940 / 940 120 / 120 240 / 240 Output: Emesis 100 / 100 Urine Amount (Catheter) 850 / 850 700 / 700 Indwelling Urethral Catheter 850 / 850 700 / 700 Other: # Emeses 1 Narrative: GENERAL: Well-developed, well-nourished patient in [facility]. SKIN: Warm and dry. No rash. HEAD: Normocephalic. Atraumatic. EYES: Pupils equal and round. No scleral icterus. No injection or drainage. Left eye periorbital ecchymosis. ENT: No nasal bleeding or discharge. Mucous membranes pink and moist. NECK: Supple. Trachea midline. CARDIOVASCULAR: Regular rate and rhythm. S1, S2 noted. RESPIRATORY: No accessory muscle use. Clear to auscultation. Breath sounds equal bilaterally. GASTROINTESTINAL: Abdomen soft, non-tender, nondistended. Normoactive bowel sounds x4. MUSCULOSKELETAL: No obvious deformities. Extremities without clubbing, cyanosis , or edema. NEUROLOGICAL: Awake and alert. No obvious cranial nerve deficits. Motor grossly within normal limits. 5/5 muscle strength in bilateral upper and lower extremities. Normal speech. - Urinary Catheter Management Straight Cath placed during this visit: yes, but has since been removed by the nurse Reason for continuing: Hourly intake/output Insertion date: 12/18/17 Insertion time: 02:14 Removal date: 12/17/17 Removal time: 15:53 Indwelling Urethral Catheter Cath placed during this visit: no Results - Labs CBC & Chem 7: 12/20/17 04:23 12/19/17 04:35 Laboratory Results - last 24 hr 12/19/17 12/19/17 12/19/17 12:19 18:11 20:54 CBC w Diff WBC RBC Hgb Hct MCV MCH MCHC RDW Plt Count MPV Neut % (Auto) Lymph % (Auto) Campbell % (Auto) Eos % (Auto) Baso % (Auto) Neut # (Auto) Lymph # (Auto) Campbell # (Auto) Eos # (Auto) Baso # (Auto) WBC Differential Diff Scan Differential Comment Platelet Estimate Platelet Morphology Acanthocytes (Spur) POC Glucose 166 H 135 H 171 H 12/20/17 12/20/17 04:23 07:11 CBC w Diff Slide review pending WBC 6.2 RBC 2.98 L Hgb 9.3 L Hct 28.2 L MCV 94.7 MCH 31.1 MCHC 32.8 RDW 15.1 Plt Count 74 L MPV 7.9 Neut % (Auto) 47.1 Lymph % (Auto) 34.6 Campbell % (Auto) 10.3 H Eos % (Auto) 5.8 H Baso % (Auto) 2.2 H Neut # (Auto) 3.0 Lymph # (Auto) 2.1 Campbell # (Auto) 0.6 Eos # (Auto) 0.4 Baso # (Auto) 0.1 WBC Differential . Diff Scan Auto diff confirmed Differential Comment . Platelet Estimate Low L Platelet Morphology Normal Acanthocytes (Spur) 1+ H POC Glucose 103 Microbiology 12/17/17 15:50 Catheterized Urine Urine Culture - Final No growth in 48 hours - Imaging Impressions Abdomen/Pelvis CT 12/19/17 00:00 CONCLUSION: 1. Either 2 separate or single bilobed cystic mass involving the pelvis as detailed above. This is poorly characterize without IV contrast. The 2 components measure 22.6 cm and 18.1 cm in greatest dimension respectively. 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 2. Large diaphragmatic hernia containing the entire stomach and portions of the transverse colon. 3. Bilateral renal cysts. 4. Cholelithiasis. Assessment and Plan - Assessment (1) Fall Code(s): W19.XXXA - Unspecified fall, initial encounter Status: Acute (2) Hypotension Code(s): I95.9 - Hypotension, unspecified Status: Acute (3) Acute on chronic renal failure Code(s): N17.9 - Acute kidney failure, unspecified; N18.9 - Chronic kidney disease, unspecified Status: Acute (4) History of hypertension Code(s): Z86.79 - Personal history of other diseases of the circulatory system Status: Acute - Plan This is an 87-year-old female: Status post mechanical fall at home -Initially complained of dizziness. This is resolved. -Head CT negative for bleed. Continue to avoid sedatives and narcotics. -Continue to monitor neuro status. Patient is presently alert and oriented 3. -Continue physical therapy. Hypotension suspect secondary to medications/autonomic dysfunction/adrenal insufficiency -Patient is status post 4 L IV fluid. Levophed titrated off yesterday morning. -2D echo reviewed showing aortic sclerosis, pulmonary hypertension and tricuspid regurgitation. -Cortisol level 21. TSH normal. -Will hold all antihypertensives at this time. -Will continue midodrine as needed for systolic less than 90 or map less than 60. -Monitor blood pressure trends. Is improving. Bradycardia: Patient has been stable between 50-60 bpm. Continue cardiac telemetry. Will continue to monitor. Will need cardiac evaluation if consistently bradycardic. Acute on chronic renal failure -Creatinine 2.7 initially, is down to 2.1. Recheck in am. -IV hydration, strict intake output, monitor and replete electrolytes, follow BUN/creatinine. -Renal ultrasound noted with adnexal mass. CT ab/pelvis showing bilateral cortical cysts. No mass or hydronephrosis. Ovarian mass -CT abdomen/pelvis ordered for further evaluation of JONATHAN and reviewed, mass seen concerning for ovarian malignancy. -Spoke to Dr. Butler and updated about case. Will have patient see him outpatient referral. Spoke to granddaughter and patient at length regarding findings. -Patient has been very clear that she does not want treatment if malignant. She states she has not had any symptoms related to this mass. -Palliative is following as well, have requested they come by to see patient again. Large diaphragmatic hernia: This was incidentally seen on CT abdomen/pelvis. Will continue to monitor. Patient has been asymptomatic. Hypothyroidism: TSH normal. Continue levothyroxine. Suspected UTI: Was placed on IV Rocephin, this is discontinued and urine culture is negative. Thrombocytopenia: Platelet trending down. Suspect secondary to possible IV antibiotics. These have been discontinued. Will continue to monitor CBC. DVT prophylaxis: SCDs. Lovenox. Discharge Planning: Awaiting clinical improvement. Continue to monitor BP overnight as well as bradycardia. Obtain recs from PT, likely will need rehab upon DC. Patient has become more weak as shes been hospitalized.
[2017-12-20] MEDS: Artificial Tears Opth Drops 15 ML Bottle LEFT EYE PRN (16:51)
[2017-12-21 05:46] LABS: Potassium 4.1 meq/L (3.5-5.1)
[2017-12-21 05:50] LABS: Calcium 9.1 mg/dL (8.5-10.1); Carbon Dioxide 25.9 meq/L (21.0-32.0)
[2017-12-21 05:57] LABS: Baso # (Auto) 0.1 th/mm3 (0.0-0.2); Baso % (Auto) 2.1 % (0.0-2.0); Eos # (Auto) 0.3 th/mm3 (0.0-0.4); Hematocrit 29.5 % (35.0-46.0); Hemoglobin 9.6 gm/dL (11.6-15.3); Lymph # (Auto) 1.8 th/mm3 (1.0-4.8); Lymph % (Auto) 30.3 % (9.0-44.0); Mean Corpuscular HGB Conc 32.7 % (32.0-36.0); Mean Corpuscular Hemoglobin 31.4 pg (27.0-34.0); Mean Platelet Volume 8.1 fL (7.0-11.0); Mono # (Auto) 0.6 th/mm3 (0.0-0.9); Mono % (Auto) 9.9 % (0.0-8.0); Neut # (Auto) 3.1 th/mm3 (1.8-7.7); Neut % (Auto) 52.7 % (16.0-70.0); Platelet Count 84 th/mm3 (150-450); Red Blood Count 3.07 mil/mm3 (4.00-5.30); Red Cell Distribution Width 14.7 % (11.6-17.2); White Blood Count 5.9 th/mm3 (4.0-11.0)
[2017-12-21] MEDS: Insulin NovoLIN Regular Correctional Sugar Inj SQ SCH ×5 (08:54→22:04)
--- NOTE | 2017-12-21 08:55 | P.PNIM ---
Subjective Interval history: Patient seen in follow-up for mechanical fall and dizziness. Suspected due to medications. Antihypertensives have been held. Overall improved. Patient out of the chair today without complaint Physical Exam Vital signs: Vital Signs 12/20/17 09:00 12/20/17 10:00 12/20/17 11:00 Temperature 98.4 F Pulse Rate 72 66 56 L Respiratory Rate 19 28 H 25 H Blood Pressure 105/53 L 90/44 L 95/47 L Pulse Oximetry 93 L 95 97 12/20/17 12:00 12/20/17 13:00 12/20/17 14:00 Temperature Pulse Rate 66 78 84 Respiratory Rate 31 H 37 H 28 H Blood Pressure 103/47 L 109/59 L 107/54 L Pulse Oximetry 97 95 95 12/20/17 15:00 12/20/17 16:00 12/20/17 17:00 Temperature 98.5 F Pulse Rate 78 78 80 Respiratory Rate 33 H 37 H 40 H Blood Pressure 86/48 L 111/57 L 106/53 L Pulse Oximetry 94 L 95 95 12/20/17 17:56 12/20/17 18:00 12/20/17 18:20 Temperature Pulse Rate 82 82 108 H Respiratory Rate 41 H 22 44 H Blood Pressure 128/65 128/65 Pulse Oximetry 95 95 12/20/17 19:00 12/20/17 19:10 12/20/17 20:00 Temperature 98.2 F Pulse Rate 104 H 108 H 70 Respiratory Rate 36 H 49 H 25 H Blood Pressure 109/56 L 123/53 L 108/50 L Pulse Oximetry 95 93 L 97 12/20/17 20:35 12/20/17 21:00 12/20/17 22:00 Temperature Pulse Rate 76 64 Respiratory Rate 28 H 22 Blood Pressure 106/52 L 105/56 L Pulse Oximetry 96 96 95 12/20/17 23:00 12/21/17 00:00 12/21/17 01:00 Temperature 98.2 F Pulse Rate 70 72 64 Respiratory Rate 22 31 H 21 Blood Pressure 93/50 L 100/53 L 97/47 L Pulse Oximetry 94 L 95 94 L 12/21/17 05:00 12/21/17 07:30 Temperature 98.3 F Pulse Rate 74 Respiratory Rate 22 Blood Pressure 98/48 L Pulse Oximetry 94 L 94 L Intake & Output 12/20/17 12/21/17 12/21/17 18:59 06:59 18:59 Intake Total 1380 / 1380 320 / 320 Output Total 950 / 950 500 / 500 Balance 430 / 430 -180 / -180 Weight 72.7 kg Intake: Oral 1380 / 1380 320 / 320 Output: Urine 950 / 950 Urine Amount (Catheter) 500 / 500 Indwelling Urethral Catheter 500 / 500 Other: Date of Last Bowel Movement 12/17/17 Narrative: GENERAL: Patient calm resting and without complaints SKIN: Warm and dry. No rashes, left facial ecchymoses EYES: Pupils equal and round. No scleral icterus. No injection or drainage. ENT: External ear exam normal. No acute nasal bleeding or discharge. Mucous membranes pink and moist. CARDIOVASCULAR: Regular rate and rhythm. No murmurs gallops or rubs appreciated RESPIRATORY: Good air flow and effort without accessory muscle use. Clear to auscultation. Breath sounds equal bilaterally. GASTROINTESTINAL: Abdomen soft, non-tender, nondistended. Hepatic and splenic margins not palpable. MUSCULOSKELETAL: Extremities without clubbing, cyanosis, or edema. No obvious deformities. NEUROLOGICAL: Awake and alert. No obvious cranial nerve deficits. Motor grossly within normal limits. Five out of 5 muscle strength in the arms and legs. Normal speech. - Urinary Catheter Management Straight Cath placed during this visit: yes, but has since been removed by the nurse Reason for continuing: Hourly intake/output Insertion date: 12/18/17 Insertion time: 02:14 Removal date: 12/17/17 Removal time: 15:53 Indwelling Urethral Catheter Cath placed during this visit: no Results - Labs CBC & Chem 7: 12/21/17 04:58 12/21/17 04:58 Laboratory Results - last 24 hr 12/20/17 12/20/17 12/20/17 11:36 16:15 20:38 CBC w Diff WBC RBC Hgb Hct MCV MCH MCHC RDW Plt Count MPV Neut % (Auto) Lymph % (Auto) [place] % (Auto) Eos % (Auto) Baso % (Auto) Neut # (Auto) Lymph # (Auto) [place] # (Auto) Eos # (Auto) Baso # (Auto) WBC Differential Differential Comment Sodium Potassium Chloride Carbon Dioxide Anion Gap BUN Creatinine Estimated GFR POC Glucose 252 H 193 H 207 H Random Glucose Calcium 12/21/17 12/21/1712/21/18 04:58 04:58 07:17 CBC w Diff Slide review pending WBC 5.9 RBC 3.07 L Hgb 9.6 L Hct 29.5 L MCV 96.0 MCH 31.4 MCHC 32.7 RDW 14.7 Plt Count 84 L MPV 8.1 Neut % (Auto) 52.7 Lymph % (Auto) 30.3 [place] % (Auto) 9.9 H Eos % (Auto) 5.0 H Baso % (Auto) 2.1 H Neut # (Auto) 3.1 Lymph # (Auto) 1.8 [place] # (Auto) 0.6 Eos # (Auto) 0.3 Baso # (Auto) 0.1 WBC Differential . Differential Comment . Sodium 145 Potassium 4.1 Chloride 113 H Carbon Dioxide 25.9 Anion Gap 6 BUN 30 H Creatinine 1.40 H Estimated GFR 36 L POC Glucose 97 Random Glucose 93 Calcium 9.1 Assessment and Plan - Assessment (1) Fall Code(s): W19.XXXA - Unspecified fall, initial encounter Status: Acute Plan: Likely due to hypotension Improved after IV hydration and now off of pressors. Echocardiogram shows pulmonary hypertension and aortic sclerosis, initially tachycardic b but now (2) Hypotension Code(s): I95.9 - Hypotension, unspecified Status: Acute Plan: Resolved after IV hydration and pressors. No new events. (3) Acute on chronic renal failure Code(s): N17.9 - Acute kidney failure, unspecified; N18.9 - Chronic kidney disease, unspecified Status: Acute Plan: Improved closer to baseline, likely prerenal acute kidney injury (4) History of hypertension Code(s): Z86.79 - Personal history of other diseases of the circulatory system Status: Acute Plan: Patient appears to have overdosed on her blood pressure medications, this is unintentional and appears to be completed by dehydration (5) Ovarian mass Code(s): N83.9 - Noninflammatory disorder of ovary, fallopian tube and broad ligament, unspecified Status: Acute Plan: Follow-up as an outpatient Palliative care consult appreciated (6) Abnormal chest x-ray Code(s): R93.8 - Abnormal findings on diagnostic imaging of other specified body structures Status: Acute Plan: Evidence of right lower lobe infiltrate versus consolidation in the setting of hypotension and tachycardia Status post Rocephin, continue oral Levaquin to complete course - Plan Discharge Planning: Lik[facility] sn[facility]
--- NOTE | 2017-12-21 08:59 | P.DCO ---
- Diagnosis (2) Fall - Physical Therapy Order: Evaluate and treat, Improve ambulation, Strength and gait training - Occupational Therapy Order: Evaluate and treat, Improve ADL, Gross motor coordination, Fine motor coordination - Case Management Consult Yes - Certification I have seen patient Callie Valle on 12/21/17. My clinical findings support the need for the requested home health care services because: Limited mobility due to disease progression, Deconditioned with increased weakness, High risk of falls I certify that my clinical findings support that this patient is homebound because: Unsteady gait/balance (2) Fall Qualifiers: Encounter type: initial encounter Qualified Code(s): W19.XXXA - Unspecified fall, initial encounter
[2017-12-21] MEDS: Artificial Tears Opth Drops 15 ML Bottle LEFT EYE PRN ×2 (09:03→13:58)
--- NOTE | 2017-12-21 11:09 | P.PNPAL ---
Reason for Visit Reason for visit: a. To assist with evaluation and management of symptoms including: pain, generalized weakness b. To assist medical decision maker(s) with: better understanding of current medical conditions; weighing benefits/burdens of medical treatment options; making medical treatment decisions. Subjective Subjective/Interval History: Ms. Valle is an 87 year old female who presented to [facility] ED in [place] on 12/17/[address] head negative for bleed. During the work up in the ED the patient was noted to have a significant decline in renal functioning over the previous 4 months. She was both hypotensive and bradycardic. Critical care was consulted and the patient was started on Levophed for pressor support; Levophed was titrated off on 12/19/2017. Patient presents sitting upright in a recliner. She is alert and oriented to person place and time and has no complaints. Respirations are unlabored on room air. Patient denies pain. Lab work reviewed 12/21/2017: = WBC 5.9, hemoglobin 9.6, hematocrit 29.5, platelets 84, neutrophils 52.7% = Sodium 145, potassium 4.1, chloride 113, glucose 93, calcium 9.1 = BUN 30, Creatinine 1.40, GFR 36 CT of abdomen/pelvis showed either 2 separate or single bilobed cystic mass involving the pelvis that was poorly characterized without IV contrast. The 2 components measure 22.6 cm and 18.1 cm in greatest dimension respectively. 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 Large diaphragmatic hernia containing the entire stomach and portions of the transverse colon. Bilateral renal cysts. Cholelithiasis. Patient has clearly stated that if she has a malignancy she would not want aggressive intervention. However, the patient's granddaughter would like additional diagnostic data so the patient has agreed to outpatient follow-up with Dr. Butler. However, she remains doubtful that she would proceed with invasive diagnostic procedures or aggressive interventions. Palliative care discussed aggressive versus comfort focused goals. Hospice services were introduced. A hospice consult was offered for information gathering and so hospice could follow the patient after discharge, but the patient was not interested in meeting with hospice at this time. With the patient's permission, palliative care spoke to the granddaughter via telephone to provide an update on the patient's clinical condition as well as discussing the patient's verbalized medical treatment goals; we also discussed what aggressive interventions and comfort focused care might look like. Family/Friend Interactions: See interval note Advance Directives Living Will: Copy in medical record Health Care Surrogate: Copy in medical record Advance Directives Date on File: 12/18/17 Documented care wishes:: Living will was completed on 12/18/2017 Objective Vital Signs: Vital Signs 12/20/17 11:00 12/20/17 12:00 12/20/17 13:00 Temperature Pulse Rate 56 L 66 78 Respiratory Rate 25 H 31 H 37 H Blood Pressure 95/47 L 103/47 L 109/59 L Pulse Oximetry 97 97 95 12/20/17 14:00 12/20/17 15:00 12/20/17 16:00 Temperature 98.5 F Pulse Rate 84 78 78 Respiratory Rate 28 H 33 H 37 H Blood Pressure 107/54 L 86/48 L 111/57 L Pulse Oximetry 95 94 L 95 12/20/17 17:00 12/20/17 17:56 12/20/17 18:00 Temperature Pulse Rate 80 82 82 Respiratory Rate 40 H 41 H 22 Blood Pressure 106/53 L 128/65 128/65 Pulse Oximetry 95 95 95 12/20/17 18:20 12/20/17 19:00 12/20/17 19:10 Temperature Pulse Rate 108 H 104 H 108 H Respiratory Rate 44 H 36 H 49 H Blood Pressure 109/56 L 123/53 L Pulse Oximetry 95 93 L 12/20/17 20:00 12/20/17 20:35 12/20/17 21:00 Temperature 98.2 F Pulse Rate 70 76 Respiratory Rate 25 H 28 H Blood Pressure 108/50 L 106/52 L Pulse Oximetry 97 96 96 12/20/17 22:00 12/20/17 23:00 12/21/17 00:00 Temperature 98.2 F Pulse Rate 64 70 72 Respiratory Rate 22 22 31 H Blood Pressure 105/56 L 93/50 L 100/53 L Pulse Oximetry 95 94 L 95 12/21/17 01:00 12/21/17 05:00 12/21/17 07:00 Temperature 98.3 F Pulse Rate 64 74 70 Respiratory Rate 21 22 21 Blood Pressure 97/47 L 98/48 L 95/44 L Pulse Oximetry 94 L 94 L 95 12/21/17 07:30 12/21/17 08:00 12/21/17 09:00 Temperature 97.9 F Pulse Rate 76 104 H Respiratory Rate 26 H 32 H Blood Pressure 112/62 103/61 Pulse Oximetry 94 L 94 L 94 L Intake & Output 12/20/17 12/21/17 12/21/17 18:59 06:59 18:59 Intake Total 1380 / 1380 320 / 320 Output Total 950 / 950 500 / 500 Balance 430 / 430 -180 / -180 Weight 72.7 kg Intake: Oral 1380 / 1380 320 / 320 Output: Urine 950 / 950 Urine Amount (Catheter) 500 / 500 Indwelling Urethral Catheter 500 / 500 Other: Date of Last Bowel Movement 12/17/17 Physical Exam: CONSTITUTIONAL/GENERAL: This is an adequately nourished patient, in no apparent distress. TUBES/LINES/DRAINS: PIV SKIN: No jaundice, rashes, or lesions. Skin temperature appropriate. Not diaphoretic. HEAD: Left facial ecchymosis EYES: Pupils equal and round and reactive. Extraocular motions intact. No scleral icterus. No injection or drainage. Fundi not examined. ENT: S[place]. Nose without bleeding or purulent drainage. Throat without visible erythema, exudates, masses, or lesions. NECK: Trachea midline. Supple, nontender. No palpable thyroid enlargement or nodularity. CARDIOVASCULAR: Regular rate and rhythm without murmurs, gallops, or rubs. No JVD. Peripheral pulses symmetric. RESPIRATORY/CHEST: Symmetric, unlabored respirations. Clear to auscultation. Breath sounds equal bilaterally. No wheezes, rales, or rhonchi. GASTROINTESTINAL: Abdomen soft, non-tender, nondistended. No hepato-splenomegaly , or palpable masses. No guarding. Bowel sounds present. GENITOURINARY: Without palpable bladder distension. MUSCULOSKELETAL: Extremities without clubbing, cyanosis, or edema. No mottling or clubbing. No obvious deformities LYMPHATICS: No palpable cervical or supraclavicular adenopathy. NEUROLOGICAL: Awake and alert. Able to make needs known. follows commands. Cognitively sharp. Moves all extremities. PSYCHIATRIC: No obvious anxiety/depression. No apparent hallucinations or other psychotic thought process. Diagnostic Tests Laboratory: Laboratory Results - last 72 hr 12/18/17 12/18/17 12/18/17 08:55 11:50 17:16 CBC w Diff WBC RBC Hgb Hct MCV MCH MCHC RDW Plt Count MPV Neut % (Auto) Lymph % (Auto) [place] % (Auto) Eos % (Auto) Baso % (Auto) Neut # (Auto) Lymph # (Auto) [place] # (Auto) Eos # (Auto) Baso # (Auto) WBC Differential Diff Scan Differential Comment Platelet Estimate Platelet Morphology Acanthocytes (Spur) Sodium Potassium Chloride Carbon Dioxide Anion Gap BUN Creatinine Estimated GFR POC Glucose 296 H 254 H Random Glucose Calcium Total Bilirubin AST ALT Alkaline Phosphatase Total Protein Albumin Cortisol 21.3 12/18/17 12/19/17 12/19/17 20:03 04:35 04:35 CBC w Diff Auto diff final WBC 7.7 RBC 3.16 L Hgb 10.0 L Hct 30.0 L MCV 94.8 MCH 31.8 MCHC 33.5 RDW 14.6 Plt Count 100 L MPV 8.0 Neut % (Auto) 43.7 Lymph % (Auto) 31.2 [place] % (Auto) 15.9 H Eos % (Auto) 8.4 H Baso % (Auto) 0.8 Neut # (Auto) 3.4 Lymph # (Auto) 2.4 [place] # (Auto) 1.2 H Eos # (Auto) 0.6 H Baso # (Auto) 0.1 WBC Differential . Diff Scan Differential Comment . Platelet Estimate Platelet Morphology Acanthocytes (Spur) Sodium 144 Potassium 4.1 Chloride 114 H Carbon Dioxide 22.0 Anion Gap 8 BUN 37 H Creatinine 2.10 H Estimated GFR 22 L POC Glucose 246 H Random Glucose 131 H D Calcium 8.3 L Total Bilirubin 0.5 AST 67 H ALT 42 Alkaline Phosphatase 56 Total Protein 4.3 L Albumin 2.2 L Cortisol 12/19/17 12/19/17 12/19/17 07:41 12:19 18:11 CBC w Diff WBC RBC Hgb Hct MCV MCH MCHC RDW Plt Count MPV Neut % (Auto) Lymph % (Auto) [place] % (Auto) Eos % (Auto) Baso % (Auto) Neut # (Auto) Lymph # (Auto) [place] # (Auto) Eos # (Auto) Baso # (Auto) WBC Differential Diff Scan Differential Comment Platelet Estimate Platelet Morphology Acanthocytes (Spur) Sodium Potassium Chloride Carbon Dioxide Anion Gap BUN Creatinine Estimated GFR POC Glucose 118 H 166 H 135 H Random Glucose Calcium Total Bilirubin AST ALT Alkaline Phosphatase Total Protein Albumin Cortisol 12/19/17 12/20/17 12/20/17 20:54 04:23 07:11 CBC w Diff Slide review pending WBC 6.2 RBC 2.98 L Hgb 9.3 L Hct 28.2 L MCV 94.7 MCH 31.1 MCHC 32.8 RDW 15.1 Plt Count 74 L MPV 7.9 Neut % (Auto) 47.1 Lymph % (Auto) 34.6 [place] % (Auto) 10.3 H Eos % (Auto) 5.8 H Baso % (Auto) 2.2 H Neut # (Auto) 3.0 Lymph # (Auto) 2.1 [place] # (Auto) 0.6 Eos # (Auto) 0.4 Baso # (Auto) 0.1 WBC Differential . Diff Scan Auto diff confirmed Differential Comment . Platelet Estimate Low L Platelet Morphology Normal Acanthocytes (Spur) 1+ H Sodium Potassium Chloride Carbon Dioxide Anion Gap BUN Creatinine Estimated GFR POC Glucose 171 H 103 Random Glucose Calcium Total Bilirubin AST ALT Alkaline Phosphatase Total Protein Albumin Cortisol 12/20/17 12/20/17 12/20/17 11:36 16:15 20:38 CBC w Diff WBC RBC Hgb Hct MCV MCH MCHC RDW Plt Count MPV Neut % (Auto) Lymph % (Auto) [place] % (Auto) Eos % (Auto) Baso % (Auto) Neut # (Auto) Lymph # (Auto) [place] # (Auto) Eos # (Auto) Baso # (Auto) WBC Differential Diff Scan Differential Comment Platelet Estimate Platelet Morphology Acanthocytes (Spur) Sodium Potassium Chloride Carbon Dioxide Anion Gap BUN Creatinine Estimated GFR POC Glucose 252 H 193 H 207 H Random Glucose Calcium Total Bilirubin AST ALT Alkaline Phosphatase Total Protein Albumin Cortisol 12/21/17 12/21/17 12/21/17 04:58 04:58 07:17 CBC w Diff Slide review pending WBC 5.9 RBC 3.07 L Hgb 9.6 L Hct 29.5 L MCV 96.0 MCH 31.4 MCHC 32.7 RDW 14.7 Plt Count 84 L MPV 8.1 Neut % (Auto) 52.7 Lymph % (Auto) 30.3 [place] % (Auto) 9.9 H Eos % (Auto) 5.0 H Baso % (Auto) 2.1 H Neut # (Auto) 3.1 Lymph # (Auto) 1.8 [place] # (Auto) 0.6 Eos # (Auto) 0.3 Baso # (Auto) 0.1 WBC Differential . Diff Scan Differential Comment . Platelet Estimate Platelet Morphology Acanthocytes (Spur) Sodium 145 Potassium 4.1 Chloride 113 H Carbon Dioxide 25.9 Anion Gap 6 BUN 30 H Creatinine 1.40 H Estimated GFR 36 L POC Glucose 97 Random Glucose 93 Calcium 9.1 Total Bilirubin AST ALT Alkaline Phosphatase Total Protein Albumin Cortisol Result Diagrams: 12/21/17 04:58 12/21/17 04:58 Microbiology: Microbiology 12/17/17 15:50 Urine Culture - Final Catheterized Urine No growth in 48 hours Imaging: Head CT 12/17/17 14:28 CONCLUSION: 1. No acute intracranial abnormalities. . Abdomen/Bladder Ultrasound 12/18/17 00:00 CONCLUSION: 1. Large complex mostly cystic lesion arising from the right adnexa with thick septations measuring up to 16.6 cm in diameter. Further evaluation with abdomen and pelvic CT recommended if not recently performed. 2. Bilateral renal cysts. Atrophic right kidney. No hydronephrosis. 3. Bladder decompressed by Dempsey. Abdomen/Pelvis CT 12/19/17 00:00 CONCLUSION: 1. Either 2 separate or single bilobed cystic mass involving the pelvis as detailed above. This is poorly characterize without IV contrast. The 2 components measure 22.6 cm and 18.1 cm in greatest dimension respectively. 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 2. Large diaphragmatic hernia containing the entire stomach and portions of the transverse colon. 3. Bilateral renal cysts. 4. Cholelithiasis. Chest X-Ray 12/19/17 05:00 CONCLUSION: Left hemidiaphragmatic hernia versus elevated left hemidiaphragm. Right lower lobe consolidation. Assessment and Plan - Disease Oriented Problem List (1) Acute on chronic renal failure (2) Fall (3) History of hypertension (4) Hypotension (5) Ovarian mass (6) Abnormal chest x-ray Comment: Evidence of right lower lobe infiltrate versus consolidation in the setting of hypotension and tachycardia. Status post Rocephin, continue oral Levaquin to complete course - Symptom Scale (1) Generalized weakness 0-10 Scale: Unable to quantify (2) Pain Pertinent Non-Medical Issues: Psychosocial: Patient is originally from [place], [place]. She had 3 sons and 1 daughter. Her youngest son committed suicide at the age of 57, although she thinks his killed him. Patient mother from leukemia at the age of 86. Father when the patient was 5 years old. Patient has one sister who is 92 year old; she had a hysterectomy several years ago because she had cancer. She moved to [place] approximately 20+ years ago. Her granddaughter moved to [place] in high school to live with her and lives with her still. Spiritual: Evangelical coy Legal: Patient completed the healthcare surrogate designation form on 12/18/2017 designating her granddaughter (Erum) at the healthcare surrogate medical decision maker. A Living will was completed at this time as well Ethical issues impacting care: No known ethical issues impacting care at this time. Important Contacts: Erum England, granddaughter: [phone] Prognosis: Patient is an 87-year-old female who recently presented to the ED after a fall. Patient was admitted for further evaluation of hypotension, UTI, and worsening renal functioning. Given the patient's age in addition to multiple medical conditions, she will be at risk for further decline and possible complications. Code Status: No Code DNR Plan: * NO CODE-DNR/DNI * A lengthy discussion was had about the process of cardiopulmonary resuscitation. Patient requests that her CODE STATUS be changed to on NO CODE- DNR/DNI. Patient's granddaughter, Erum, was present during these conversations and stated the patient's expressed wishes were consistent with their previous conversations about CODE STATUS. * Living will and healthcare surrogate designation forms were completed on 2017. Copies of these documents were placed in the patient's paper chart. * Discussed patient with Dr. Gupta and RAYMON Whitt. * Patient designates her grand-daughter, Erum, as her healthcare surrogate decision maker. * GOALS: Aggressive up to the point of cardiopulmonary resuscitation * Symptom management-generalized weakness: Patient lives with her grand- daughter. She presented to [facility] ED after a fall. Prior to this admission the patient was ambulating with a cane or rolling walker. Physical therapy is following. Discharge plan likely SNF versus C * Imaging revealed a large pelvic mass concerning for ovarian cancer. Patient clearly states she does not want aggressive intervention. However, the patient' s granddaughter would like additional diagnostic data so the patient has agreed to outpatient follow-up with Dr. Butler. However, she remains doubtful that she would proceed with invasive diagnostic procedures or aggressive interventions. Palliative care discussed aggressive versus comfort focused goals. Hospice services were introduced. A hospice consult was offered for information gathering and so hospice could follow the patient after discharge, but the patient was not interested in meeting with hospice at this time. * Palliative care will follow this patient throughout her hospitalization to establish trust, assist with symptom management and clarification of medical treatment goals. Attestation Attestation: To help prompt me to consider important information that might be impacting today's encounter and assessment, information from prior notes written by myself or my colleagues may have been "brought forward" into today's note. My signature on this note, however, is an attestation that I personally performed the exam, history, and/or decision-making noted today, and, unless otherwise indicated, the interactions with patient, family, and staff as well as the review of records all occurred today. I also attest that the listed assessment and stated plan reflect my best clinical judgment today based on the combination of historical information, prior notes, and today's exam/ interactions. When time spent is documented, it refers only to time spent today by the signer, or if indicated, combined time spent today by collaborating physician/nurse practitioner.
[2017-12-21] MEDS: levoFLOXacin Liq 25 MG/ML 100 ML Bottle PO SCH (13:49)
[2017-12-21 20:21] VITALS: RESP 18
[2017-12-22] MEDS: Insulin NovoLIN Regular Correctional Sugar Inj SQ SCH ×4 (08:10→21:45)
[2017-12-22] MEDS: levoFLOXacin Liq 25 MG/ML 100 ML Bottle PO SCH (08:31)
--- NOTE | 2017-12-22 09:35 | P.DS ---
Date of admission: 12/17/17 16:16 Primary care physician: Jose Mccoy MD Brief History from admission: 87 Y/O female with a medical history significant for hypotension presented to the emergency room with her daughter after a mechanical fall at home. Patient reports that she normally goes to bed around 2 in the morning and sleep in most days. She woke up today to get ready and tripped on the scale on the bathroom. The left side of her face striking the door frame. She denied any lightheadedness, no chest pain. She is short of breath at baseline with activities. She does not normally eat breakfast. Her blood pressure in the emergency room was noted to the in the 80's/50's and heart rate in the 50's. On my evaluation she states she is feeling well. She has been given a liter of NS and BP improved but still low in the 90's/50's. Daughter reports that her blood pressure is usually in the normal range or elevated. Hospitalist service contacted for admission. DS: Diagnosis - Discharge Diagnosis (1) Fall Status: Acute (2) Hypotension Status: Acute (3) Acute on chronic renal failure Status: Acute (4) History of hypertension Status: Acute DS: Medications - Discharge Medications Prescriptions: levofloxacin 500 mg PO DAILY 5 Days #100 ml midodrine 5 mg PO Q8HR 30 Days tab DS: Summary Hospital Course: This is an 87-year-old female status post mechanical fall at home. Initially complained of dizziness. This is resolved. Head CT negative for bleed. Patient is presently alert and oriented 3. Physical therapy saw patient during hospitalization, recommendations for rehab. Patient was also hypotensive upon presentation she was given IV resuscitation with 4 L IV fluid as well as Levophed drip in the ICU. This is been weaned off and started on midodrine scheduled. 2D echo was done showing some aortic sclerosis as well as pulmonary hypertension and tricuspid regurgitation. Cortisol level normal as well as TSH. All antihypertensives were discontinued upon discharge. Patient was also bradycardic during hospitalization, this did improve and she was sustained in the 60s. Patient did have acute on chronic renal failure with creatinine up to 2.7 this has trended down with 1.4 upon discharge today. Patient was given IV hydration as well as the renal ultrasound showing adrenal mass. It was also incidentally found on the CT abdomen/pelvis a ovarian mass. Spoke to Dr. Butler , who reviewed the records and recommended follow-up outpatient. A referral has been placed and the granddaughter as well as the patient have been updated at length regarding findings. Patient is very clear that she does not want treatment if malignant. Palliative care also followed with the patient, patient was made a DNR. Was also incidentally found that patient had a large diaphragmatic hernia, this is stable and patient is asymptomatic. Patient had suspected UTI with abnormal UA, IV Rocephin was started and discontinued with urine culture negative. Thrombocytopenia was noted but stabilized on day of discharge. Will have patient follow-up PCP and follow lab work. - Time Spent with Patient Total time spent providing and/or coordinating discharge services: Greater than 30 minutes - Quality: VTE Deep Vein Thrombosis/Pulmonary Embolism Present on Admission: No Exam Vital signs: Vital Signs 12/21/17 12:00 12/21/17 16:00 12/21/17 20:00 Temperature 98.4 F 98.6 F 99.0 F Pulse Rate 70 75 88 Respiratory Rate 26 H 17 18 Blood Pressure 104/47 L 134/63 131/66 Pulse Oximetry 96 98 96 12/21/17 20:08 12/22/17 00:00 12/22/17 08:00 Temperature 97.3 F L 98.2 F Pulse Rate 74 69 Respiratory Rate 18 18 Blood Pressure 121/72 131/64 Pulse Oximetry 97 95 94 L Intake & Output 12/21/17 12/22/17 12/22/17 18:59 06:59 18:59 Intake Total 480 / 480 Output Total 500 / 500 Balance -20 / -20 Weight 75.7 kg Intake: Oral 480 / 480 Output: Urine 500 / 500 Other: # Voids 3 Date of Last Bowel Movement 12/20/17 12/21/17 Narrative: GENERAL: Well-developed, well-nourished patient in [facility]. SKIN: Warm and dry. No rash. HEAD: Normocephalic. Atraumatic. EYES: Pupils equal and round. No scleral icterus. No injection or drainage. Left eye ecchymosis ENT: No nasal bleeding or discharge. Mucous membranes pink and moist. NECK: Supple. Trachea midline. CARDIOVASCULAR: Regular rate and rhythm. S1, S2 noted. No murmur appreciated. RESPIRATORY: No accessory muscle use. Clear to auscultation. Breath sounds equal bilaterally. GASTROINTESTINAL: Abdomen soft, non-tender, nondistended. Normoactive bowel sounds x4. MUSCULOSKELETAL: No obvious deformities. Extremities without clubbing, cyanosis , or edema. NEUROLOGICAL: Awake and alert. No obvious cranial nerve deficits. Motor grossly within normal limits. 5/5 muscle strength in bilateral upper and lower extremities. Normal speech. PSYCHIATRIC: Appropriate mood and affect; insight and judgment normal. Results Procedures completed during hospitalization: None. Labs on day of discharge: Labs from last 24 hours 12/22/17 12/21/17 12/21/17 07:37 22:04 16:29 POC Glucose 101 98 155 H 12/21/17 12:04 POC Glucose 149 H - Impressions ITS Impressions Head CT 12/17/17 14:28 CONCLUSION: 1. No acute intracranial abnormalities. . Abdomen/Bladder Ultrasound 12/18/17 00:00 CONCLUSION: 1. Large complex mostly cystic lesion arising from the right adnexa with thick septations measuring up to 16.6 cm in diameter. Further evaluation with abdomen and pelvic CT recommended if not recently performed. 2. Bilateral renal cysts. Atrophic right kidney. No hydronephrosis. 3. Bladder decompressed by Dempsey. Abdomen/Pelvis CT 12/19/17 00:00 CONCLUSION: 1. Either 2 separate or single bilobed cystic mass involving the pelvis as detailed above. This is poorly characterize without IV contrast. The 2 components measure 22.6 cm and 18.1 cm in greatest dimension respectively. 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 2. Large diaphragmatic hernia containing the entire stomach and portions of the transverse colon. 3. Bilateral renal cysts. 4. Cholelithiasis. Chest X-Ray 12/19/17 05:00 CONCLUSION: Left hemidiaphragmatic hernia versus elevated left hemidiaphragm. Right lower lobe consolidation. Discharge Plan - Discharge Disposition Patient Disposition: 03 Discharge to SNF - Discharge Condition Condition: Good - Discharge Order Discharge Orders: Discharge Order (Routine); Ordered 12/22/17 Ordered By: Mary Ann Damico - Discharge Details Anticipated Discharge Date: 12/22/17 - Physicians Team Primary Care Provider: Jose Mccoy Attending Provider: Jazmín Gupta Other Providers: Micha Méndez MD ; Blaise Rendon MD ; Thee Kingston ; Nils Zarate MD
[2017-12-23 00:18] VITALS: BP 144/67; PULSE 67; TEMP 98.2; O2SAT 94
[2017-12-23] MEDS: Insulin NovoLIN Regular Correctional Sugar Inj SQ SCH (08:34)
== END 2017-12-23 10:28 ==
LOC: PHED 14:01 → PHEDA 16:16 → PHICU 18:05 → PH3 12-21 14:48
PROVIDERS: ADMIT Hospitalist; ATTEND Hospitalist

== ENCOUNTER 2018-01-28 08:41 | Observation (INO) ==
--- NOTE | 2018-01-28 09:12 | ED ---
HPI General Chief complaint: Dizziness Stated complaint: Fall Time Seen by Provider: 01/28/18 08:49 History of Present Illness HPI narrative: 87-year-old female here for evaluation after syncopal episode. The patient was brought in by ambulance and is here with her daughter. She was admitted to the hospital last month for similar episode, was found to be severely dehydrated with acute kidney injury, and during that hospital admission she was diagnosed with a pelvic mass, and was evaluated by office machine technician/onc, and decided to not pursue surgery for this mass. This morning the patient was assisted to the bathroom by her daughter when shortly afterwards the patient's daughter heard the patient fall to the ground. The patient fell into the bathtub. When the patient's daughter open the door, the patient was a week, however the patient does not recall the entire incident. She denies head injury or any injury. No chest pain or dyspnea. States that she overall feels unwell. No fevers or recent illness. No paresthesias or motor deficits. Related Data Home Medications Medication Instructions Recorded Confirmed aspirin [Aspir-81] 81 mg PO DAILY 12/17/17 01/28/18 levothyroxine 25 mcg PO DAILY 12/17/17 01/28/18 simvastatin 40 mg PO QPM 12/17/17 01/28/18 ascorbic acid (vitamin C) [Vitamin 500 mg PO DAILY 01/28/18 01/28/18 C] cholecalciferol (vitamin D3) 2,500 unit PO 5XW 01/28/18 01/28/18 [Vitamin D3] ciprofloxacin (mixture) 500 mg PO 3XW 01/28/18 01/28/18 cranberry extract 425 mg PO BID 01/28/18 01/28/18 cyanocobalamin (vitamin B-12) 1,000 mcg PO DAILY 01/28/18 01/28/18 [Vitamin B-12] folic acid 0.4 mg PO DAILY 01/28/18 01/28/18 lactobacillus combination no.4 3,000 mmu cells PO DAILY 01/28/18 01/28/18 [Probiotic] magnesium 400 mg PO DAILY 01/28/18 01/28/18 midodrine 5 mg PO TID PRN 01/28/18 01/28/18 niacin 500 mg PO DAILY 01/28/18 01/28/18 omega 8-ojz-rup-fish oil [[place]-3] 1 cap PO DAILY 01/28/18 01/28/18 Allergies Allergy/AdvReac Type Severity Reaction Status Date / Time No Known Allergies Allergy Verified 01/28/18 08:57 Review of Systems ROS: all other systems reviewed are negative PMFSH Social History Social History Substance History: No History of Abuse Second Hand Smoke Exposure: No Smoking Status: Never smoker How Often Do You Have a Drink Containing Alcohol: Never Recent Travel in [facility] within the Last 8 Weeks: No Recent Out of Country Travel within the Last 8 Weeks: No Exam Narrative Exam Narrative: GENERAL: Well-developed, well-nourished, awake, alert, pleasant , no apparent distress. SKIN: Focused skin assessment warm/dry. No lacerations, abrasions, or ecchymosis. HEAD: Atraumatic. Normocephalic. EYES: Pupils equal and round. No scleral icterus. No injection or drainage. ENT: No nasal bleeding or discharge. Mucous membranes pink and moist. NECK: Trachea midline. No JVD. CARDIOVASCULAR: Regular rate and rhythm with occasional PVCs. RESPIRATORY: No accessory muscle use. Clear to auscultation. Breath sounds equal bilaterally. GASTROINTESTINAL: Abdomen soft, non-tender, nondistended. MUSCULOSKELETAL: No obvious deformities. No clubbing. No cyanosis. No edema. NEUROLOGICAL: Awake and alert. No obvious cranial nerve deficits. Motor grossly within normal limits. Normal speech. PSYCHIATRIC: Appropriate mood and affect; insight and judgment normal. Course Initial Documented Vital Signs Temperature 97.7 F 01/28/18 08:49 Pulse Rate 62 01/28/18 08:49 Respiratory Rate 16 01/28/18 08:49 Blood Pressure 193/95 H 01/28/18 08:49 Pulse Oximetry 97 01/28/18 08:49 Last Documented Vital Signs Temperature 97.7 F 01/28/18 08:49 Pulse Rate 68 01/28/18 09:48 Respiratory Rate 16 01/28/18 09:47 Blood Pressure 185/68 H 01/28/18 09:47 Pulse Oximetry 98 01/28/18 09:47 Medical Decision Making MDM Narrative Medical decision making narrative: Labs, vitals, and imaging studies were reviewed and were discussed with the patient and the patient's daughter. CT pulmonary angiogram: CONCLUSION:1. No evidence for pulmonary embolus.2. 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 Large diaphragmatic hernia with associated compressive atelectasis. Patient's UA shows elevated WBC count with few WBC clumps as well as small leukocyte esterase. She will be started on IV Rocephin. Given the patient's age, syncopal episode, EKG showing frequent PVCs, she will be admitted for further evaluation. Case discussed with hospitalist Dr. Tamez who will admit the patient to his service. Medical Screen Exam Complete: Yes Emergency Medical Condition: Yes Differential Diagnosis Differential Diagnosis: Syncope, dysrhythmia, metabolic abnormality, vasovagal episode, intracranial abnormality, PE Lab Data Result diagrams: 01/28/18 09:24 01/28/18 09:24 Lab Results 01/28/18 01/28/18 01/28/18 Range/Units 09:24 09:24 09:24 CBC w Diff Auto diff final WBC 5.5 (4.0-11.0) th/mm3 RBC 3.78 L (4.00-5.30) mil/mm3 Hgb 11.7 (11.6-15.3) gm/dL Hct 36.2 (35.0-46.0) % MCV 95.7 (80.0-100.0) fL MCH 30.9 (27.0-34.0) pg MCHC 32.3 (32.0-36.0) % RDW 13.6 (11.6-17.2) % Plt Count 154 (150-450) th/mm3 MPV 8.4 (7.0-11.0) fL Neut % (Auto) 67.0 (16.0-70.0) % Lymph % (Auto) 18.8 (9.0-44.0) % [place] % (Auto) 8.9 H (0.0-8.0) % Eos % (Auto) 3.9 (0.0-4.0) % Baso % (Auto) 1.4 (0.0-2.0) % Neut # (Auto) 3.7 (1.8-7.7) th/mm3 Lymph # (Auto) 1.0 (1.0-4.8) th/mm3 [place] # (Auto) 0.5 (0.0-0.9) th/mm3 Eos # (Auto) 0.2 (0.0-0.4) th/mm3 Baso # (Auto) 0.1 (0.0-0.2) th/mm3 WBC Differential . Differential Comment . Sodium 144 (136-145) meq/L Potassium 4.1 (3.5-5.1) meq/L Chloride 110 H (98-107) meq/L Carbon Dioxide 25.7 (21.0-32.0) meq/L Anion Gap 8 (5-15) meq/L BUN 13 (7-18) mg/dL Creatinine 0.95 (0.50-1.00) mg/dL Estimated GFR 56 L (>89) mL/min Random Glucose 105 (74-106) mg/dL Calcium 10.0 (8.5-10.1) mg/dL Total Bilirubin 0.7 (0.2-1.0) mg/dL AST 25 (15-37) U/L ALT 16 (10-53) U/L Alkaline Phosphatase 61 (45-117) U/L Troponin I Less than 0.02 L (0.02-0.05) ng/mL Total Protein 6.2 L (6.4-8.2) g/dL Albumin 2.9 L (3.4-5.0) g/dL Ur Collection Type Urine Color (Yellw/Straw) Urine Clarity (Clear) Urine pH (5.0-8.5) Ur Specific [place] (1.002-1.035) Urine Protein (Neg-Trace) mg/dL Urine Glucose (UA) (Negative) mg/dL Urine Ketones (Negative) mg/dL Urine Occult Blood (Negative) Urine Nitrate (Negative) Urine Bilirubin (Negative) Urine Urobilinogen (Less than 2) mg/dL Ur Leukocyte Esterase (Negative) Urine WBC (0-5) /hpf Urine WBC Clumps (None) Ur Squamous Epith Cells (0-5) /hpf Amorphous Sediment (None) /hpf Ur Microscopic Review Urine Collection Time hours 01/28/18 Range/Units 10:01 CBC w Diff WBC (4.0-11.0) th/mm3 RBC (4.00-5.30) mil/mm3 Hgb (11.6-15.3) gm/dL Hct (35.0-46.0) % MCV (80.0-100.0) fL MCH (27.0-34.0) pg MCHC (32.0-36.0) % RDW (11.6-17.2) % Plt Count (150-450) th/mm3 MPV (7.0-11.0) fL Neut % (Auto) (16.0-70.0) % Lymph % (Auto) (9.0-44.0) % [place] % (Auto) (0.0-8.0) % Eos % (Auto) (0.0-4.0) % Baso % (Auto) (0.0-2.0) % Neut # (Auto) (1.8-7.7) th/mm3 Lymph # (Auto) (1.0-4.8) th/mm3 [place] # (Auto) (0.0-0.9) th/mm3 Eos # (Auto) (0.0-0.4) th/mm3 Baso # (Auto) (0.0-0.2) th/mm3 WBC Differential Differential Comment Sodium (136-145) meq/L Potassium (3.5-5.1) meq/L Chloride (98-107) meq/L Carbon Dioxide (21.0-32.0) meq/L Anion Gap (5-15) meq/L BUN (7-18) mg/dL Creatinine (0.50-1.00) mg/dL Estimated GFR (>89) mL/min Random Glucose (74-106) mg/dL Calcium (8.5-10.1) mg/dL Total Bilirubin (0.2-1.0) mg/dL AST (15-37) U/L ALT (10-53) U/L Alkaline Phosphatase (45-117) U/L Troponin I (0.02-0.05) ng/mL Total Protein (6.4-8.2) g/dL Albumin (3.4-5.0) g/dL Ur Collection Type Clean catch Urine Color Yellow (Yellw/Straw) Urine Clarity Clear (Clear) Urine pH 7.5 (5.0-8.5) Ur Specific [place] 1.015 (1.002-1.035) Urine Protein 30 H (Neg-Trace) mg/dL Urine Glucose (UA) Negative (Negative) mg/dL Urine Ketones Negative (Negative) mg/dL Urine Occult Blood Negative (Negative) Urine Nitrate Negative (Negative) Urine Bilirubin Negative (Negative) Urine Urobilinogen 0.2 (Less than 2) mg/dL Ur Leukocyte Esterase Small H (Negative) Urine WBC 9-20 H (0-5) /hpf Urine WBC Clumps Few H (None) Ur Squamous Epith Cells 0-5 (0-5) /hpf Amorphous Sediment Moderate H (None) /hpf Ur Microscopic Review Microscopic reviewed Urine Collection Time 1001 hours Imaging Data Radiologist's impression: Chest X-Ray 01/28/18 08:56 CONCLUSION: Large hiatal hernia with basilar opacity and cardiomegaly. Chest CTA 01/28/18 10:00 CONCLUSION: 1. No evidence for pulmonary embolus. 2. 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 3. Large diaphragmatic hernia with associated compressive atelectasis. Head CT 01/28/18 10:00 CONCLUSION: 1. Atrophy and white matter disease. 2. Stable appearance of the brain. . ECG Data Attestation: I personally reviewed and interpreted this ECG as follows: (Sinus, rate 68, leftward axis, normal intervals, frequent PVCs, no acute ischemic abnormality.) Discharge Plan Discharge Disposition Patient Disposition: 30 Still Patient Discharge Condition Condition: Stable Discharge Details Diagnosis: Syncope, UTI (urinary tract infection), Aneurysm of thoracic aorta Physicians Team ED Provider: Cecilio Adams Primary Care Provider: Jose Mccoy Rxs /Orders / Referrals /Forms Prescriptions: No Action aspirin [Aspir-81] 81 mg Tablet,Delayed Release (Dr/Ec) 81 mg PO DAILY RF: 0 simvastatin 40 mg Tablet 40 mg PO QPM RF: 0 levothyroxine 25 mcg Tablet 25 mcg PO DAILY RF: 0 cranberry extract 425 mg Capsule 425 mg PO BID RF: 0 midodrine 5 mg Tablet 5 mg PO TID PRN (Reason: Hypotension) RF: 0 cyanocobalamin (vitamin B-12) [Vitamin B-12] 1,000 mcg Tablet 1,000 mcg PO DAILY RF: 0 folic acid 400 mcg Tablet 0.4 mg PO DAILY RF: 0 ascorbic acid (vitamin C) [Vitamin C] 500 mg Tablet 500 mg PO DAILY RF: 0 niacin 500 mg Tablet 500 mg PO DAILY RF: 0 magnesium 200 mg Tablet 400 mg PO DAILY RF: 0 ciprofloxacin (mixture) 500 mg Tablet, Er Multiphase 24 Hr 500 mg PO 3XW RF: 0 cholecalciferol (vitamin D3) [Vitamin D3] 5,000 unit Tablet 2,500 unit PO 5XW RF: 0 lactobacillus combination no.4 [Probiotic] 3 billion cell Capsule 3,000 mmu cells PO DAILY RF: 0 omega 0-mik-los-fish oil [[place]-3] 350 mg-235 mg- 90 mg-597 mg Capsule, Delayed Release(Dr/Ec) 1 cap PO DAILY RF: 0 Status ED Status: With Doctor
[2018-01-28 09:32] LABS: Baso # (Auto) 0.1 th/mm3 (0.0-0.2); Baso % (Auto) 1.4 % (0.0-2.0); Eos # (Auto) 0.2 th/mm3 (0.0-0.4); Eos % (Auto) 3.9 % (0.0-4.0); Hematocrit 36.2 % (35.0-46.0); Hemoglobin 11.7 gm/dL (11.6-15.3); Lymph % (Auto) 18.8 % (9.0-44.0); Mean Corpuscular HGB Conc 32.3 % (32.0-36.0); Mean Corpuscular Hemoglobin 30.9 pg (27.0-34.0); Mean Corpuscular Volume 95.7 fL (80.0-100.0); Mean Platelet Volume 8.4 fL (7.0-11.0); Mono # (Auto) 0.5 th/mm3 (0.0-0.9); Mono % (Auto) 8.9 % (0.0-8.0); Neut # (Auto) 3.7 th/mm3 (1.8-7.7); Platelet Count 154 th/mm3 (150-450); Red Blood Count 3.78 mil/mm3 (4.00-5.30); Red Cell Distribution Width 13.6 % (11.6-17.2); White Blood Count 5.5 th/mm3 (4.0-11.0)
[2018-01-28 09:51] LABS: Albumin 2.9 g/dL (3.4-5.0); Carbon Dioxide 25.7 meq/L (21.0-32.0); Glucose,Random 105 mg/dL (74-106)
[2018-01-28 09:52] LABS: Blood Urea Nitrogen 13 mg/dL (7-18)
[2018-01-28 09:54] LABS: Alanine Aminotransferase 16 U/L (10-53); Aspartate Aminotransferase 25 U/L (15-37); Glomerular Filtration Rate 56 mL/min (>89)
[2018-01-28 09:56] LABS: Total Protein 6.2 g/dL (6.4-8.2)
--- NOTE | 2018-01-28 09:56 | XR ---
EXAM DATE: 01/28/2018 9:35 AM EDT AGE/SEX: 87 years / Female INDICATIONS: Short of breath, nausea, syncope CLINICAL DATA: This is the patient's initial encounter. Patient reports that signs and symptoms have been present for 1 day and indicates a pain score of 0/10. MEDICAL/SURGICAL HISTORY: Diabetes mellitus type II. None. COMPARISON: [facility], CHEST 1V SINGLE AP, 12/19/2017. [facility], CT ABDOMEN & PELVIS W/O CONTRAST, 12/19/2017. . FINDINGS: There is a large diaphragmatic hernia occupying the lower chest left more so than right. Associated a telectasis. Cardiomegaly. CONCLUSION: Large hiatal hernia with basilar opacity and cardiomegaly. Electronically signed by: Emmett Nicole MD 01/28/2018 9:55 AM EDT
[2018-01-28 09:57] LABS: Alkaline Phosphatase 61 U/L (45-117)
[2018-01-28 10:08] LABS: Bilirubin,Urine Negative (Negative); Clarity,Urine Clear (Clear); Color,Urine Yellow (Yellw/Straw); Glucose,Urine (UA) Negative (Negative); Leukocyte Esterase,Urine Small (Negative); Nitrite,Urine Negative (Negative); PH,Urine 7.5 (5.0-8.5); Specific Gravity,Urine 1.015 (1.002-1.035); Urobilinogen,Urine 0.2 mg/dL (Less than 2)
[2018-01-28 10:19] LABS: Collection Time,Urine 1001 hours
[2018-01-28 10:20] LABS: Amorphous Sediment,Urine Moderate /hpf; Squamous Epithelial Cell,Urine 0-5 /hpf (0-5)
[2018-01-28 10:35] LABS: Anion Gap 8 meq/L (5-15); Chloride 110 meq/L (98-107); Potassium 4.1 meq/L (3.5-5.1); Sodium 144 meq/L (136-145)
--- NOTE | 2018-01-28 10:42 | CT ---
EXAM DATE: 01/28/2018 10:39 AM EDT AGE/SEX: 87 years / Female INDICATIONS: Syncopal episode this morning. CLINICAL DATA: This is the patient's initial encounter. Patient reports that signs and symptoms have been present for 1 day and indicates a pain score of 0/10. MEDICAL/SURGICAL HISTORY: Hypercholesterolemia. Hypertension. Hypothyroidism. Tonsillectomy. RADIATION DOSE: 10.92 CTDI (mGy) COMPARISON: [facility], CHEST 1V SINGLE AP, 01/28/2018. . TECHNIQUE: Volumetric scanning was performed using a multi-row detector CT scanner during bolus infu maggie of 65 ml Omnipaque 350 (iohexol) nonionic water-soluble contrast as a single exam dose. The martine a was post processed with a variety of visualization algorithms including full volume maximum intensi ty projection and sliding thin slab reformation. Using automated exposure control and adjustment of the mA and/or kV according to patient size, radiation dose was kept as low as reasonably achievable t o obtain optimal diagnostic quality images. DICOM format image data is available electronically for review and comparison. FINDINGS: There are small bilateral effusions, and a large diaphragmatic hernias seen containing stomach small and large bowel as well as portion of the pancreas. There is compressive atelectasis of the left lowe r lobe, lingula and right lower lobe. There is coronary artery calcification and atherosclerotic calc ification of the aorta. There is mild aneurysmal dilatation of the ascending aorta measuring 4.1 x 4. 0 cm in AP transverse dimension. There is no evidence for pulmonary embolism. There is a small perica rdial effusion. CONCLUSION: 1. No evidence for pulmonary embolus. 2. 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 3. Large diaphragmatic hernia with associated compressive atelectasis. Electronically signed by: Emmett Nicole MD 01/28/2018 10:41 AM EDT
--- NOTE | 2018-01-28 10:43 | CT ---
EXAM DATE: 01/28/2018 10:31 AM EDT AGE/SEX: 87 years / Female INDICATIONS: Syncopal episode and dizziness this morning. CLINICAL DATA: This is the patient's initial encounter. Patient reports that signs and symptoms have been present for 1 day and indicates a pain score of 0/10. MEDICAL/SURGICAL HISTORY: Hypercholesterolemia. Hypertension. Hypothyroidism. Tonsillectomy. RADIATION DOSE: 48.51 CTDI (mGy) COMPARISON: [facility], CT HEAD W/O CONTRAST, 12/17/2017. . TECHNIQUE: CT of the head without contrast. Using automated exposure control and adjustment of the mA and/or kV according to patient size, radiation dose was kept as low as reasonably achievable to ob tain optimal diagnostic quality images. DICOM format image data is available electronically for revi ew and comparison. FINDINGS: There is mild prominence of the CSF spaces, ventricles and cisterns. There are no signs of intracrani al hemorrhage or mass. Patchy hypodensity in the basal ganglia is unchanged. There are no signs of ac mentasta infarct, hemorrhage or mass. No fractures. CONCLUSION: 1. Atrophy and white matter disease. 2. Stable appearance of the brain. . Electronically signed by: Emmett Nicole MD 01/28/2018 10:42 AM EDT
[2018-01-28] MEDS ORDERED: Acetaminophen 325 MG Tablet PO PRN (12:28)
--- NOTE | 2018-01-28 12:37 | P.HPIM ---
History of Present Illness Service: [facility] Primary Care Physician: Jose Mccoy MD Chief Complaint: near syncope History of Present Illness: Mrs. Valle is a 87 yo F with PMH of recent fall, HTN, recently found pelvic mass, DM, hypothyroidism, parathyroid disorder, and glaucoma who presented to ED after fall injury. Patient accompanied by granddaughter who provided a majority of the history. Patient reportedly was walking with her grandmother to the bathroom; when her granddaughter briefly went into the other room, patient felt lightheaded and fell into the tub. Granddaughter helped patient up and sat her on the toilet; she continued to feel weak so granddaughter called EMS ho assisted patient. Granddaughter then brought her to the emergency room for evaluation. Patient denied loss of consciousness from the episode [however she reported not being able to remember event to the ED provider]. She denied associated palpitations, chest pain, shortness of breath, headache, recent vision changes, extremity weakness/numbness/tingling, or problems with bowel movements or urinary changes. She sees a Urologist and was told to urinate every 2 hrs to avoid retention. Per discussion with daughter and EMR review, patient has had another recent fall recently resulting in head injury. Patient was taken off of antihypertensives by her prior providers due to concern for fall risk. patient also has had episodes of hypotension; she was previously prescribed Midodrine but this was stopped due to patient having stable BP at home. Interval: Patient with stable VS in ED with exception of HTN- SBP 180's, otherwise normal. Patient had EKG showing frequent PVC's; troponin and labs unremarkable with exception of UA with WBC's and leuk esterase elevations. CTA obtained without evidence of PE,aneurysmal dilatation o ascending aorta and atherosclerosis found. Head CT without acute disease. Due to multiple recent falls and PVC's suggestive of possible underlying cardiac disease, patient admitted for observation. - Diagnosis (1) Fall (2) Hypotension (3) History of hypertension Review of Systems Constitutional: Denies chills, Denies fever(s), Denies headache(s) Eyes: Reports other (glaucoma) Ears, Nose, Mouth, and Throat: Denies sinus pain, Denies sinus pressure Cardiovascular: Denies shortness of breath, Denies shortness of breath with activity Respiratory: Denies cough, Denies pain with cough Gastrointestinal: Denies abdominal pain, Denies nausea Genitourinary: Denies urinary incontinence, Denies urinary urgency Musculoskeletal: Reports abnormal walking (weakness), Denies numbness Skin/Breast: Denies lesions, Denies rash Neurologic: Reports frequent falls, Denies headache(s) Psychiatric: Denies anxiety, Denies depression Endocrine: Denies increased urination, Denies rapid, pounding, or irregular heartbeat [facility] - History History Provided By: Patient, Family Member, Court Orderly / EMT - Medical History Medical History: Medical History (Last Updated 01/28/18 @ 22:33 by Daniel Tamez MD) Diabetes Fall Urinary bladder disorder High cholesterol Hypertension Hypothyroidism - Surgical History Surgical History: Surgical History (Last Reviewed 01/28/18 @ 08:52 by Merle Serrato RN) Hx of tonsillectomy - Family History Family History: Family History (Last Updated 01/28/18 @ 22:34 by Daniel Tamez MD) Other Family history non-contributory - Social History I have reviewed the patient's Social History: Yes - Tobacco History Second Hand Smoke Exposure: No Smoking Status: Never smoker - Alcohol History How Often Do You Have a Drink Containing Alcohol: Never - Substance Use History Substance History: No History of Abuse - Travel History Recent Travel in the [place] Within the Last 8 Weeks: No Recent Travel Out of the Country Within the Last 8 Weeks: No - Immunization History Tetanus Immunization: >5 Years Hx Influenza Vaccine This Season: No Medications and Allergies Allergies Allergy/AdvReac Type Severity Reaction Status Date / Time No Known Allergies Allergy Verified 01/28/18 08:57 Home Medications Medication Instructions Recorded Confirmed Type aspirin [Aspir-81] 81 mg PO DAILY 12/17/17 01/28/18 History levothyroxine 25 mcg PO DAILY 12/17/17 01/28/18 History simvastatin 40 mg PO QPM 12/17/17 01/28/18 History ascorbic acid (vitamin C) [Vitamin 500 mg PO DAILY 01/28/18 01/28/18 History C] cholecalciferol (vitamin D3) 2,500 unit PO 5XW 01/28/18 01/28/18 History [Vitamin D3] ciprofloxacin (mixture) 500 mg PO 3XW 01/28/18 01/28/18 History cranberry extract 425 mg PO BID 01/28/18 01/28/18 History cyanocobalamin (vitamin B-12) 1,000 mcg PO DAILY 01/28/18 01/28/18 History [Vitamin B-12] folic acid 0.4 mg PO DAILY 01/28/18 01/28/18 History lactobacillus combination no.4 3,000 mmu cells PO DAILY 01/28/18 01/28/18 History [Probiotic] magnesium 400 mg PO DAILY 01/28/18 01/28/18 History midodrine 5 mg PO TID PRN 01/28/18 01/28/18 History niacin 500 mg PO DAILY 01/28/18 01/28/18 History omega 6-ala-yrk-fish oil [Stuart-3] 1 cap PO DAILY 01/28/18 01/28/18 History Exam Vital signs: Vital Signs 01/28/18 08:49 01/28/18 08:57 01/28/18 09:47 Temperature 97.7 F Pulse Rate 62 68 Respiratory Rate 16 16 Blood Pressure 193/95 H 185/68 H Pulse Oximetry 97 98 98 01/28/18 09:48 01/28/18 12:18 Temperature Pulse Rate 68 68 Respiratory Rate 16 Blood Pressure 160/62 H Pulse Oximetry 98 Intake & Output 01/27/18 01/28/18 01/28/18 18:59 06:59 18:59 Intake Total 100 / 100 Balance 100 / 100 Weight 61.36 kg Intake: IV 100 / 100 Rocephin Inj 1,000 MG In NS Inj 100 / 100 100 ML @ 200 mls/hr IV.SIG ONCE ONE Rx#:[id number] Narrative: General: No acute distress head: some L pain over eyebrow where previously bruised from fall injury Eyes: EOM grossly I HENT: Normal mucus membranes Skin: No visible lesions Neck: No appreciated thyromegaly or lymphadenopathy CV: Regular rate and rhythm; normal perfusion Resp: CTAB; normal rate Abdomen/Back: Normal BS. Soft, nontender Ext: Grossly normal ROM and motor function Neuro: Awake/alert. Grossly normal CN. Grossly normal peripheral motor/sensory function Results - Labs CBC & Chem 7: 01/28/18 09:24 01/28/18 09:24 Labs: Short CBC 01/28/18 Range/Units 09:24 WBC 5.5 (4.0-11.0) th/mm3 Hgb 11.7 (11.6-15.3) gm/dL Hct 36.2 (35.0-46.0) % Plt Count 154 (150-450) th/mm3 BMP 01/28/18 09:24 Sodium 144 Potassium 4.1 Chloride 110 H Carbon Dioxide 25.7 BUN 13 Creatinine 0.95 Calcium 10.0 Cardiac Enzymes 01/28/18 Range/Units 09:24 Troponin I Less than 0.02 L (0.02-0.05) ng/mL Liver Function 01/28/18 Range/Units 09:24 Total Bilirubin 0.7 (0.2-1.0) mg/dL AST 25 (15-37) U/L ALT 16 (10-53) U/L Alkaline Phosphatase 61 (45-117) U/L Albumin 2.9 L (3.4-5.0) g/dL Urine 01/28/18 Range/Units 10:01 Urine Color Yellow (Yellw/Straw) Urine Clarity Clear (Clear) Urine pH 7.5 (5.0-8.5) Ur Specific [place] 1.015 (1.002-1.035) Urine Protein 30 H (Neg-Trace) mg/dL Urine Glucose (UA) Negative (Negative) mg/dL - Imaging Impressions Chest X-Ray 01/28/18 08:56 CONCLUSION: Large hiatal hernia with basilar opacity and cardiomegaly. Chest CTA 01/28/18 10:00 CONCLUSION: 1. No evidence for pulmonary embolus. 2. 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 3. Large diaphragmatic hernia with associated compressive atelectasis. Head CT 01/28/18 10:00 CONCLUSION: 1. Atrophy and white matter disease. 2. Stable appearance of the brain. . Caprini VTE Risk Assessment Caprini VTE Risk Assessment: Moderate/High Risk (score >= 2) Caprini Risk Assessment Model: Point Value = 1 Point Value = 2 Point Value = 3 Point Value = 5 Age 41-60 Minor surgery BMI > 25 kg/m2 Swollen legs Varicose veins or History of unexplained or recurrent spontaneous Oral contraceptives or hormone replacement Sepsis (< 1 month) Serious lung disease, including pneumonia (< 1 month) Abnormal pulmonary function Acute myocardial infarction Congestive heart failure (< 1 month) History of inflammatory bowel disease Medical patient at bed rest Age 61-74 Arthroscopic surgery Major open surgery (> 45 min) Laparoscopic surgery (> 45 min) Malignancy Confined to bed (> 72 hours) Immobilizing plaster cast Central venous access Age >= 75 History of VTE Family history of VTE Factor V Leiden Prothrombin [id number] Lupus anticoagulant Anticardiolipin antibodies Elevated serum homocysteine Heparin-induced thrombocytopenia Other congenital or acquired thrombophilia Stroke (< 1 month) Elective arthroplasty Hip, pelvis, or leg fracture Acute spinal cord injury (< 1 month) Prophylaxis Regimen: Total Risk Factor Score Risk Level Prophylaxis Regimen 0-1 Low Early ambulation 2 Moderate Order ONE of the following: *Sequential Compression Device (SCD) *Heparin 5000 units SQ BID 3-4 Higher Order ONE of the following medications: *Heparin 5000 units SQ TID *Enoxaparin/Lovenox 40 mg SQ daily (WT < 150 kg, CrCl > 30 mL/min) *Enoxaparin/Lovenox 30 mg SQ daily (WT < 150 kg, CrCl > 10-29 mL/min) *Enoxaparin/Lovenox 30 mg SQ BID (WT < 150 kg, CrCl > 30 mL/min) AND/OR *Sequential Compression Device (SCD) 5 or more Highest Order ONE of the following medications: *Heparin 5000 units SQ TID (Preferred with Epidurals) *Enoxaparin/Lovenox 40 mg SQ daily (WT < 150 kg, CrCl > 30 mL/min) *Enoxaparin/Lovenox 30 mg SQ daily (WT < 150 kg, CrCl > 10-29 mL/min) *Enoxaparin/Lovenox 30 mg SQ BID (WT < 150 kg, CrCl > 30 mL/min) AND *Sequential Compression Device (SCD) Assessment and Plan - Assessment (1) Fall Code(s): W19.XXXA - Unspecified fall, initial encounter Status: Acute (2) Hypotension Code(s): I95.9 - Hypotension, unspecified Status: Acute (3) History of hypertension Code(s): Z86.79 - Personal history of other diseases of the circulatory system Status: Acute - Plan Mrs. Valle is a 87 yo F with: Near syncope, fall injury History: Multiple frequent falls; unclear etiology. Near syncope vs syncope today head CT without acute disease PVC's on EKGs; initial troponin negative Echo 12/2017- normal LV size, LV systolic function hyperdynamic with EF 65-70%, mild regurgitation Impression: Patient does not seem to have structural heart defect based on echo ; no known arrhythmia, Possible PVC vs orthostatic hypotension component -ACS rule-out -troponins, EKG's reassuring -Will monitor on telemetry -Will check Orthostatic VS -PT consulted -Will monitor BP but treat conservatively with PRN medications - if continued PVC's overnight but otherwise unremarkable, may benefit from low dose BB for symptom control UA on admission with leukocytes, WBC. No current urinary symptoms. no culture obtained due to lack of bacteria. sees Urology for frequent retention. -Will continue Rocephin started in ED for possible UTI Pelvic mass -Evaluated by Dr. Butler previously; patient elected to not pursue surgical removal/diagnosis of mass/IR drainage but can re-consider PRN Hypothyroidism -Continue home Levothyroxine Continue home medications -Vitamins -ASA, statin DVT PPX -Bilateral SCD;s Code Status: Full code (1) Fall Qualifiers: Encounter type: initial encounter Qualified Code(s): W19.XXXA - Unspecified fall, initial encounter
--- NOTE | 2018-01-28 13:54 | ECG ---
Date Performed: 01/28/2018 Time Performed: 09:06:26 PTAGE: 87 years EKG: Sinus rhythm WITH FREQUENT VENTRICULAR PREMATURE COMPLEXES ABNORMAL RHYTHM ECG PREVIOUS TRACING : 12/17/2017 21.11 DOCTOR: Paulette Zambrano Interpretating Date/Time 01/28/2018 13:52:19
[2018-01-28] MEDS ORDERED: CRANBERRY EXTRACT 425 MG PO SCH (21:00)
[2018-01-28 21:10] VITALS: RESP 16
[2018-01-29 06:48] LABS: Baso # (Auto) 0.1 th/mm3 (0.0-0.2); Baso % (Auto) 1.1 % (0.0-2.0); Eos # (Auto) 0.3 th/mm3 (0.0-0.4); Eos % (Auto) 5.3 % (0.0-4.0); Hematocrit 30.1 % (35.0-46.0); Hemoglobin 9.8 gm/dL (11.6-15.3); Lymph # (Auto) 1.8 th/mm3 (1.0-4.8); Lymph % (Auto) 28.7 % (9.0-44.0); Mean Corpuscular HGB Conc 32.6 % (32.0-36.0); Mean Corpuscular Hemoglobin 31.4 pg (27.0-34.0); Mean Corpuscular Volume 96.5 fL (80.0-100.0); Mean Platelet Volume 8.4 fL (7.0-11.0); Mono # (Auto) 0.6 th/mm3 (0.0-0.9); Mono % (Auto) 9.6 % (0.0-8.0); Neut # (Auto) 3.4 th/mm3 (1.8-7.7); Neut % (Auto) 55.3 % (16.0-70.0); Platelet Count 144 th/mm3 (150-450); Red Blood Count 3.12 mil/mm3 (4.00-5.30); Red Cell Distribution Width 13.8 % (11.6-17.2); White Blood Count 6.2 th/mm3 (4.0-11.0)
[2018-01-29 07:01] LABS: Potassium 3.5 meq/L (3.5-5.1)
[2018-01-29 07:19] LABS: Calcium 9.7 mg/dL (8.5-10.1); Carbon Dioxide 28.8 meq/L (21.0-32.0)
[2018-01-29] MEDS ORDERED: Lactobacillus Acidophilus/L. Spores Tablet PO SCH (09:00)
[2018-01-29] MEDS ORDERED: Ascorbic Acid 500 MG Tablet PO SCH (09:00)
[2018-01-29] MEDS ORDERED: Folic Acid 1 MG Tablet PO SCH (09:00)
[2018-01-29] MEDS ORDERED: Non-Formulary Drug (Omega 3-Dha-Epa-Fish Oil [Omega-3] 1 CAP) PO SCH (09:00)
[2018-01-29] MEDS ORDERED: Magnesium Oxide 400 MG Tablet PO SCH (11:00)
[2018-01-29 12:34] VITALS: BP 130/66; PULSE 64; TEMP 97.2; O2SAT 96
--- NOTE | 2018-01-29 17:54 | P.DS ---
Date of admission: 01/28/18 11:15 Primary care physician: Jose Mccoy MD Attending physician on discharge: Rosemary Velazquez Anticipated date of discharge: 01/29/18 Brief History from admission: Mrs. Valle is a 87 yo F with PMH of recent fall, HTN, recently found pelvic mass, DM, hypothyroidism, parathyroid disorder, and glaucoma who presented to ED after fall injury. Patient accompanied by granddaughter who provided a majority of the history. Patient reportedly was walking with her grandmother to the bathroom; when her granddaughter briefly went into the other room, patient felt lightheaded and fell into the tub. Granddaughter helped patient up and sat her on the toilet; she continued to feel weak so granddaughter called EMS ho assisted patient. Granddaughter then brought her to the emergency room for evaluation. Patient denied loss of consciousness from the episode [however she reported not being able to remember event to the ED provider]. She denied associated palpitations, chest pain, shortness of breath, headache, recent vision changes, extremity weakness/numbness/tingling, or problems with bowel movements or urinary changes. She sees a Urologist and was told to urinate every 2 hrs to avoid retention. Per discussion with daughter and EMR review, patient has had another recent fall recently resulting in head injury. Patient was taken off of antihypertensives by her prior providers due to concern for fall risk. patient also has had episodes of hypotension; she was previously prescribed Midodrine but this was stopped due to patient having stable BP at home. Interval: Patient with stable VS in ED with exception of HTN- SBP 180's, otherwise normal. Patient had EKG showing frequent PVC's; troponin and labs unremarkable with exception of UA with WBC's and leuk esterase elevations. CTA obtained without evidence of PE,aneurysmal dilatation o ascending aorta and atherosclerosis found. Head CT without acute disease. Due to multiple recent falls and PVC's suggestive of possible underlying cardiac disease, patient admitted for observation. Patient update on day of discharge: Patient denies any symptoms since she had episode happened at home. She stated that when she got up to walk with physical therapist she had no dizziness lightheadedness, chest pain, palpitation. She said that she feels fine. Patient stated that she never passed out. She stated that she felt dizzy like the room was spinning so had to sit down and felt nauseous. This resolved. She denies any chest pain. Her granddaughter is at the bedside during the interview. When I try to distinguish between dizziness and lightheadedness she stated that she did not feel like she was lightheadedness like she wanted to pass out but she just felt dizzy like her head in the room was spinning. Per patient's daughter this is a second episode within 6 weeks. No other events overnight. DS: Diagnosis - Discharge Diagnosis (1) Dizziness Status: Acute DS: Medications - Discharge Medications Prescriptions: meclizine 12.5 mg PO Q8H PRN #30 tab PRN Reason: Dizziness DS: Summary Hospital Course: Mrs. Valle is a 87 yo F who presented with dizziness. She had a relatively short hospital course that was not impressive. Patient stated that she felt dizzy in which her head was spinning in the room is spinning. She denies any lightheadedness in which she felt like she wanted to pass out. This is her second fall within 2 weeks. On initial EKG just shows some PVCs troponin negative. Echo 12/2017- normal LV size, LV systolic function hyperdynamic with EF 65-70%, mild regurgitation Impression: Patient does not seem to have structural heart defect based on echo. No events on telemetry. Orthostatics was also negative. Patient was advised by physical therapist who stated that okay for patient to go home with her granddaughter. I spoke with the granddaughter and stated to her that it is possible that she may want to see her primary care provider in regards to performing a 30 day Holter monitor if there continues to be concerned. - Time Spent with Patient Total time spent providing and/or coordinating discharge services: Less than 30 minutes - Quality: VTE Deep Vein Thrombosis/Pulmonary Embolism Present on Admission: No Exam Vital signs: Vital Signs 01/28/18 20:00 01/28/18 20:32 01/29/18 00:00 Temperature 98.2 F 98.6 F Pulse Rate 69 75 Respiratory Rate 16 16 Blood Pressure 111/55 L 133/64 Pulse Oximetry 95 95 93 L 01/29/18 04:00 01/29/18 08:00 01/29/18 12:00 Temperature 96.3 F L 97.6 F 97.2 F L Pulse Rate 67 57 L 64 Respiratory Rate 16 16 16 Blood Pressure 131/60 131/60 130/66 Pulse Oximetry 93 L 95 96 Intake & Output 01/28/18 01/29/18 01/29/18 18:59 06:59 18:59 Intake Total 220 / 220 200 / 200 100 / 100 Output Total 200 / 200 Balance 20 / 20 200 / 200 100 / 100 Weight 61.36 kg 61.3 kg Intake: IV 100 / 100 100 / 100 Rocephin Inj 1,000 MG In NS Inj 100 / 100 100 / 100 100 ML @ 200 mls/hr IV.SIG Q24H IRIS Rx#:[id number] Oral 120 / 120 200 / 200 Output: Urine 200 / 200 Other: # Voids 1 2 Weight On Admission 61.36 kg - Constitutional no acute distress - Routine HEENT Exam Head: Present: normocephalic, Ramirez's sign ENT: Present: mucous membranes moist - Routine Neck Exam Present: supple, full ROM - Routine Respiratory Exam Present: CTA bilaterally - Routine Cardiovascular Exam Present: RRR, S1, S2 Comments: No rubs murmurs or gallops. - Routine Abdominal Exam Present: soft, normoactive bowel sounds - Routine Extremities Exam Comments: Negative lower extremity edema. - Routine Neurological Exam Present: alert, oriented X3 Motor and sensation grossly intact. Results Procedures completed during hospitalization: none Labs on day of discharge: Labs from last 24 hours 01/29/18 01/29/18 05:55 05:55 CBC w Diff Auto diff final WBC 6.2 RBC 3.12 L Hgb 9.8 L Hct 30.1 L MCV 96.5 MCH 31.4 MCHC 32.6 RDW 13.8 Plt Count 144 L MPV 8.4 Neut % (Auto) 55.3 Lymph % (Auto) 28.7 [place] % (Auto) 9.6 H Eos % (Auto) 5.3 H Baso % (Auto) 1.1 Neut # (Auto) 3.4 Lymph # (Auto) 1.8 [place] # (Auto) 0.6 Eos # (Auto) 0.3 Baso # (Auto) 0.1 WBC Differential . Differential Comment . Sodium 147 H Potassium 3.5 Chloride 110 H Carbon Dioxide 28.8 Anion Gap 8 BUN 17 Creatinine 0.89 Estimated GFR 60 L Random Glucose 77 Calcium 9.7 - Impressions ITS Impressions Chest X-Ray 01/28/18 08:56 CONCLUSION: Large hiatal hernia with basilar opacity and cardiomegaly. Chest CTA 01/28/18 10:00 CONCLUSION: 1. No evidence for pulmonary embolus. 2. 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 3. Large diaphragmatic hernia with associated compressive atelectasis. Head CT 01/28/18 10:00 CONCLUSION: 1. Atrophy and white matter disease. 2. Stable appearance of the brain. . Discharge Plan - Discharge Disposition Patient Disposition: Discharge Home - Discharge Condition Condition: Stable - Discharge Order Discharge Orders: Discharge Order (Routine); Ordered 01/29/18 Ordered By: Rosemary Velazquez - Discharge Details Anticipated Discharge Date: 01/29/18 - Physicians Team Primary Care Provider: Jose Mccoy Attending Provider: Rosemary Velazquez Other Providers: Thee Kingston
--- NOTE | 2018-01-29 19:23 | ECG ---
Date Performed: 01/28/2018 Time Performed: 15:01:19 PTAGE: 87 years EKG: Sinus rhythm WITH FREQUENT VENTRICULAR PREMATURE COMPLEXES POSSIBLE LEFT ATRIAL ENLARGEMENT BORDERLINE LEFT AXIS DEVIATION NONSPECIFIC T-WAVE ABNORMALITY ABNORMAL RHYTHM ECG PREVIOUS TRACING : 01/28/2018 09.06 Since the previous tracing, no significant change noted DOCTOR: Christy Morales Interpretating Date/Time 01/29/2018 19:22:57
== END 2018-01-29 14:13 | disposition home or self-care (01) ==
LOC: PHED 08:41 → PHEDA 08:41 → PH3 12:20
PROVIDERS: ADMIT Family Medicine; ATTEND Family Medicine
DX: J98.11 Atelectasis; I71.2 Thoracic aortic aneurysm, without rupture; I49.3 Ventricular premature depolarization; R55 Syncope and collapse; R29.6 Repeated falls; R19.00 Intra-abdominal and pelvic swelling, mass and lump, unspecified site; E78.00 Pure hypercholesterolemia, unspecified; E86.0 Dehydration; E11.9 Type 2 diabetes mellitus without complications; K44.9 Diaphragmatic hernia without obstruction or gangrene; E03.9 Hypothyroidism, unspecified; N17.9 Acute kidney failure, unspecified; N39.0 Urinary tract infection, site not specified; I11.9 Hypertensive heart disease without heart failure; I51.7 Cardiomegaly; W19.XXXA Unspecified fall, initial encounter